=== PATIENT | female | born 1935 | race Caucasian/White ===

== ENCOUNTER 2016-07-23 21:37 | Inpatient (IN) | payer BC ==
[~2016-07-23] VITALS: Ht 170.2 cm; Wt 72.6 kg
[~2016-07-23 21:37] MED LIST: LEVO25TA58 PO; LISINOPRIL PO
[2016-07-23 21:45] VITALS: BP 142/82; PULSE 92; RESP 20; TEMP 98; O2SAT 100
--- NOTE | 2016-07-23 21:45 | NUR ---
Patient to ER bed 1 to gown for evaluation. Side rails up. Report given to JOSH MESA.
--- NOTE | 2016-07-23 21:50 | NUR ---
Pt BIB ambulance status post-mechanical fall. Pt stated that she tripped and fell at home, landed on her Left hip, extreme pain 9/10 upon movement of the left leg. Left left laterally rotated and bended, skin pale, pedal pulse present. No bruises noted. A&Ox4, denies N/V/D, denies chestpain or SOB. Will continue to monitor
--- NOTE | 2016-07-23 21:55 | NUR ---
MD Mcintosh at bedside examining pt
[2016-07-23] MEDS ORDERED: NACL 0.9% 1,000 ML IV ONE (21:57)
[2016-07-23] MEDS ORDERED: KETOROLAC TROMETHAMINE 30 MG VIAL IVP ONE (22:00)
[2016-07-23 22:26] LABS: BASOPHILS % (AUTO) 0.3 % (0.0-2.0); EOSINOPHILS # (AUTO) 0.1 K/uL (0.0-0.4); EOSINOPHILS % (AUTO) 0.4 % (0.0-4.0); HEMATOCRIT 32.7 % (36-48); HEMOGLOBIN 11.5 g/dL (12.0-16.0); LYMPHOCYTES # (AUTO) 1.1 K/uL (1.0-5.5); LYMPHOCYTES % (AUTO) 6.8 % (20.5-51.5); MEAN CORPUSCULAR HEMOGLOBIN 36 pg (27-31); MEAN CORPUSCULAR HGB CONC 35 % (32-36); MEAN CORPUSCULAR VOLUME 102 fL (79.0-98.0); MONOCYTES # (AUTO) 0.6 K/uL (0.0-1.0); MONOCYTES % (AUTO) 3.8 % (1.7-9.3); NEUTROPHILS # (AUTO) 14.1 K/uL (1.8-7.7); NEUTROPHILS % (AUTO) 88.7 % (40.0-70.0); PLATELET COUNT (AUTO) 221 K/uL (130-430); RED BLOOD CELL COUNT(AUTO) 3.22 MIL/uL (4.2-6.2); RED CELL DISTRIBUTION WIDTH 11.6 % (9.0-15.0); WHITE BLOOD COUNT (AUTO) 15.9 K/uL (4.8-10.8)
--- NOTE | 2016-07-23 22:30 | NUR ---
pt stated pain is controlled, VSS< no sign of distress
[2016-07-23 22:41] LABS: ALANINE AMINOTRANSFERASE 22 U/L (12-78); ANION GAP 10 (5-15); ASPARTATE AMINOTRANSFERASE 26 U/L (10-37); CHLORIDE 102 mmol/L (98-107); CREATININE 0.78 mg/dL (0.55-1.30); POTASSIUM 3.9 mmol/L (3.5-5.1); SODIUM SERUM 136 mmol/L (136-145); TOTAL BILIRUBIN 0.7 mg/dL (0.0-1.0); TOTAL PROTEIN, SERUM 7.6 g/dL (6.4-8.3); UREA NITROGEN, BLOOD 19 mg/dL (8-21)
[2016-07-23 22:46] LABS: PROTHROMBIN TIME 10.6 SECS (9.5-12.5)
[2016-07-23 22:55] LABS: GLUCOSE 124 mg/dL (70-99)
[2016-07-23] MEDS ORDERED: MORPHINE 4 MG/ML INJ. SYRINGE IVP ONE (23:00)
--- NOTE | 2016-07-23 23:15 | NUR ---
# 16 FR Combs catheter with use of sterile technique. Immediate return of 300 cc yellow urine noted. Bedside drainage bag placed below level of bladder. Urine sample collected and sent to lab. Pt tolerated procedure well
[2016-07-23 23:38] LABS: BILIRUBIN,URINE NEGATIVE (NEGATIVE); BLOOD, URINE 2+ (NEGATIVE); CLARITY/URINE CLEAR (CLEAR); COLOR,URINE YELLOW (YELLOW); GLUCOSE,URINE NEGATIVE (NEGATIVE); KETONES,URINE TRACE (NEGATIVE); LEUKOCYTE ESTERASE ,URINE NEGATIVE (NEGATIVE); NITRITE, URINE NEGATIVE (NEGATIVE); PH,URINE 5.5 (5.0-8.0); PROTEIN URINE NEGATIVE (NEGATIVE); UROBILINOGEN,URINE 0.2 (0.2-1.0)
[2016-07-23 23:54] LABS: BACTERIA,URINE RARE /HPF (None Seen); MUCUS,URINE None Seen /LPF (None Seen); WBC,URINE 0-3 /HPF (0-3)
[2016-07-24] VITALS (9 sets, daily range): BP systolic 100–120; BP diastolic 53–77; PULSE 69–97; RESP 16–18; TEMP 97–99.1; O2SAT 95–99
[2016-07-24] MEDS ORDERED: D5/0.45 NS 1,000 ML IV ONE (00:15)
[2016-07-24] MEDS ORDERED: ONDANSETRON HCL 4 MG/2 ML VIAL IVP PRN (00:15)
--- NOTE | 2016-07-24 00:20 | NUR ---
Patient will be admitted to care of . Admitted to Med-surg unit. Will go to room 130A. Belongings list completed. Summary report printed. Report given to Enrico Arvizu
--- NOTE | 2016-07-24 00:23 | NUR ---
ADMISSION NOTE Received patient from ER via nisha, received report from jania MESA. Patient admitted with diagnosis of fracture. Patient oriented to hospital routine, call light, toileting and safety-patient verbalized understanding.
--- NOTE | 2016-07-24 00:30 | NUR ---
NOTES; RECEIVED PT FROM ER VIA GURNEY TO ROOM 130A. PT IS IN BED, A/A/O X4. NO ACUTE DISTRESS NOTED. VITAL SIGNS STABLE. ORIENTED PT TO ROOM AND CALL LIGHT. PT VERBALIZED AND DEMONSTRATED UNDERSTANDING. RECEIVED PT WITH IV ON THE LEFT A/C, GAUGE 22 WITH ORDERED IVF. SKIN INTACT. MENDIOLA CATHETER DRAINING TO GRAVITY YELLOW URINE OUT PUT. PT STATED COMFORTABLE PAIN OF 4/10. PT DOES NOT WANT TO BE MEDICATED. PEDAL PULSES PALPABLE. PT IS ABLE TO WIGGLE AND FELX TOES. SENSATION PRESENT. PT IS A FALL RISK. FALL PRECAUTION IN PLACE. BED LOCKED AND IN LOW POSITION, SIDE RAILS UP X3. BED ALARM ON. YELLOW WRIST BAND ON PT WRIST. CALL LIGHT IN PT HAND. ADVISED PT TO USE CALL LIGHT TO CALL FOR ANY NEED TO ASSIST. ROOM CLOSE TO NURSES STATION. PT VERBALIZED UNDERSTANDING. BELONGINGS LIST DOCUMENTED AND SIGNED BY PT. WILL CONTINUE TO MONITOR.
--- NOTE | 2016-07-24 01:09 | NUR ---
CONSULTATION PAGED REASON FOR CONSULTATION: fx left leg WAS CONSULT CALLED? yes PERSON WHO WAS NOTIFIED: cyndy CONSULTING PHYSICIAN: Dr. Powell; Dr. Vasquez is curbing stonecutter for Dr. Powell DRUM SEALER SPECIALTY: Ortho DRUM SEALER PHONE NUMBER: [phone]
--- NOTE | 2016-07-24 02:30 | NUR ---
NOTES; PT IS IN BED, APPEARED TO BE SLEEPING. RESPIRATION EVEN AND UNLABORED. SAFETY MEASURES IN PROGRESS. WILL CONTINUE TO MONITOR.
--- NOTE | 2016-07-24 04:30 | NUR ---
IV RE-INSERTION: Complaining IV leaking. Restarted new iv on the left hand, gauge 22. Successful after one attempt. Resumed IVF Will observe for any signs of infiltration. Old iv removed with catheter tip intact. Dressing applied. No bleeding noted.
[2016-07-24] MEDS: MORPHINE 2 MG/ML INJ. SYRINGE IVP PRN ×2 (05:00→09:26)
--- NOTE | 2016-07-24 06:50 | NUR ---
NOTES; AWAKE, IN BED. NO ACUTE DISTRESS NOTED. PEDAL PULSES PALPABLE. VITAL SIGNS STABLE, AFEBRILE. IVF INFUSING WELL. DENIES ANY PAIN AT THIS TIME. SAFETY MEASURES IN PROGRESS.
--- NOTE | 2016-07-24 07:20 | NUR ---
initial notes; pt on bed resting. stable. i.v. access patent. daughter at bedside. call light within reach. report given at bedside.
[2016-07-24 07:36] LABS: ALANINE AMINOTRANSFERASE 21 U/L (12-78); ALBUMIN 3.5 g/dL (3.4-4.8); ANION GAP 8 (5-15); ASPARTATE AMINOTRANSFERASE 26 U/L (10-37); CALCIUM 9.1 mg/dL (8.4-11.0); CHLORIDE 102 mmol/L (98-107); CREATININE 0.73 mg/dL (0.55-1.30); GLUCOSE 127 mg/dL (70-99); POTASSIUM 4.6 mmol/L (3.5-5.1); SODIUM SERUM 135 mmol/L (136-145); TOTAL BILIRUBIN 1.2 mg/dL (0.0-1.0); TOTAL PROTEIN, SERUM 6.6 g/dL (6.4-8.3); UREA NITROGEN, BLOOD 20 mg/dL (8-21)
[2016-07-24 07:46] LABS: BASOPHILS % (AUTO) 0.3 % (0.0-2.0); EOSINOPHILS # (AUTO) 0.1 K/uL (0.0-0.4); EOSINOPHILS % (AUTO) 1.2 % (0.0-4.0); HEMOGLOBIN 9.6 g/dL (12.0-16.0); LYMPHOCYTES # (AUTO) 1.4 K/uL (1.0-5.5); LYMPHOCYTES % (AUTO) 15.9 % (20.5-51.5); MEAN CORPUSCULAR HEMOGLOBIN 37 pg (27-31); MEAN CORPUSCULAR HGB CONC 36 % (32-36); MEAN CORPUSCULAR VOLUME 105 fL (79.0-98.0); MONOCYTES # (AUTO) 0.8 K/uL (0.0-1.0); MONOCYTES % (AUTO) 9.2 % (1.7-9.3); NEUTROPHILS # (AUTO) 6.2 K/uL (1.8-7.7); NEUTROPHILS % (AUTO) 73.4 % (40.0-70.0); PLATELET COUNT (AUTO) 178 K/uL (130-430); RED BLOOD CELL COUNT(AUTO) 2.58 MIL/uL (4.2-6.2); RED CELL DISTRIBUTION WIDTH 11.6 % (9.0-15.0)
[2016-07-24 08:21] LABS: WHITE BLOOD COUNT (AUTO) 8.5 K/uL (4.8-10.8)
--- NOTE | 2016-07-24 08:30 | NUR ---
Ortho consult Spoke to Dr. caldera , informed regarding consult/xray result will come to see the patient.
--- NOTE | 2016-07-24 09:30 | NUR ---
pain meds: pt complained of pain 01/02. due pain meds given thru i.v.p.
[2016-07-24] MEDS ORDERED: LEVO88TA5 PO (11:22)
[2016-07-24] MEDS ORDERED: NAPR-688 PO (11:22)
[2016-07-24] MEDS ORDERED: NEU100 PO (11:22)
[2016-07-24] MEDS ORDERED: ASPI-859 PO (11:22)
[2016-07-24] MEDS ORDERED: RAMI2.5C34 PO (11:22)
[2016-07-24] MEDS ORDERED: LIP10 PO (11:22)
[2016-07-24] MEDS ORDERED: MOME13HF2 INH (11:29)
[2016-07-24] MEDS ORDERED: [UNRECOGNIZED DRUG - OTHER] (11:29)
[2016-07-24] MEDS ORDERED: FISH1CAP16 PO (11:37)
[2016-07-24] MEDS ORDERED: FERR-57 PO (11:37)
[2016-07-24] MEDS ORDERED: MULT-1164 PO (11:37)
[2016-07-24] MEDS ORDERED: CA/D1TAB7 PO (11:37)
[2016-07-24] MEDS ORDERED: FERR159T2 PO (11:37)
[2016-07-24] MEDS ORDERED: ALBU8.5H8 INH (11:41)
--- NOTE | 2016-07-24 12:00 | NUR ---
rounds: pt on bed resting. family at bedside. no distress noted.
[2016-07-24] MEDS ORDERED: CYAN250010 PO (12:30)
[2016-07-24] MEDS ORDERED: TURM1POW PO (12:30)
[2016-07-24] MEDS ORDERED: GLUC-236 PO (12:30)
[2016-07-24] MEDS ORDERED: BIOT10004 PO (12:30)
[2016-07-24] MEDS ORDERED: VITA1CAP PO (12:30)
[2016-07-24] MEDS ORDERED: ENOXAPARIN SODIUM 40 MG/0.4 ML SYRINGE SUBCUT ONE (13:00)
[2016-07-24] MEDS: HYDROcodone/ACETAMIN 5-325 MG TAB (NORCO/ VICODIN) PO PRN ×3 (13:42→21:50)
--- NOTE | 2016-07-24 13:54 | NUR ---
pain meds: administered pain meds P.O. per pt request.
[2016-07-24] MEDS: 0.45% NACL 1,000 ML IV SCH (14:02)
--- NOTE | 2016-07-24 14:09 | NUR ---
rounds: pt on bed with family at bedside. changed fluids per order. lovenox administered as ordered.
--- NOTE | 2016-07-24 15:00 | NUR ---
Cinthya rounds: pt talk to Dr. Vasquez.
--- NOTE | 2016-07-24 15:18 | NUR ---
rounds: pt on bed awake with family at bedside. no distress noted. comfortable and not in pain.
--- NOTE | 2016-07-24 17:15 | NUR ---
rounds: pt on bed resting and family at bedside.
--- NOTE | 2016-07-24 18:01 | NUR ---
Pain meds: pain medication given for femur fracture pain.
--- NOTE | 2016-07-24 18:29 | NUR ---
closing notes: pt on bed sleeping. stable. needs attended. daughter at bedside. call light within reach. bed safety in placed. report will be given to incoming nurse.
--- NOTE | 2016-07-24 19:15 | NUR ---
change of shift:pt.assessed.i have confirmed:lt.leg injury.call light w/in pt's reach.family @bedside.
--- NOTE | 2016-07-24 19:45 | NUR ---
pt.assessed.v/s assessed.pt.sates she is fine.iv fluids infuising.call light w/in pt's reach.
--- NOTE | 2016-07-24 21:00 | NUR ---
2100 p medications administered.pt.requested pain tablet:norco 2 b due @2200p.
[2016-07-24] MEDS: ATORVASTATIN 10 MG TABLET PO SCH (21:48)
[2016-07-24] MEDS: GABAPENTIN 100 MG CAPSULE PO SCH (21:49)
--- NOTE | 2016-07-24 22:00 | NUR ---
pt.assessed norco:1 tab administered..
--- NOTE | 2016-07-25 | NUR ---
pt.assessed.pt.presents quiescent affect;calm,asleep.call light w/in pt's reach. Addendum: 07/25/16 at 0425 by Lj Alexis RN no distress/discomfort manifested.
[2016-07-25 00:22] VITALS: BP 105/64; PULSE 74; RESP 20; TEMP 97.6; O2SAT 92
--- NOTE | 2016-07-25 02:00 | NUR ---
pt.assessed.pt.presents quiescent affect;calm,asleep.iv fluids infusing.call light w/in pt's reach. Addendum: 07/25/16 at 0426 by Lj Alexis RN no distress/discomfort manifested.
--- NOTE | 2016-07-25 04:00 | NUR ---
pt.assessed.pt.presents quiescent affect;calm,asleep.call light w/in pt's reach. Addendum: 07/25/16 at 0427 by Lj Alexis RN no distress/discomfort manifested.
[2016-07-25 04:23] VITALS: BP 132/68; PULSE 76; RESP 18; TEMP 97.8; O2SAT 96
--- NOTE | 2016-07-25 05:50 | NUR ---
pt.assessed.pt.is tentative surgery:07/25/16 per /verenice.pt.is awaiting informed consent per nano. pt.2 b ordered dietaty status:npo @[facility].
[2016-07-25] MEDS: 0.45% NACL 1,000 ML IV SCH (06:05)
[2016-07-25] MEDS: LEVOTHYROXINE SODIUM 0.088 MG TABLET PO SCH (06:09)
--- NOTE | 2016-07-25 08:00 | NUR ---
OPENING NOTE: RECEIVED REPORT FROM NIGHT NURSE. PATIENT IS RESTING COMFORTABLY IN BED. NO S/S OF DISTRESS OR SOB. PATIENT IS ALERT AND ORIENTED, ABLE TO EXPRESS NEEDS, AND ASK FOR ASSISTANCE. VITAL SIGNS WNL, ASSESSMENT COMPLETE. CALL LIGHT IN REACH, BED IN LOWEST POSITION, AND WILL CONTINUE TO MONITOR.
[2016-07-25 08:37] VITALS: BP 147/57; PULSE 72; RESP 18; TEMP 98.1; O2SAT 95
[2016-07-25 08:54] LABS: BASOPHILS % (AUTO) 0.4 % (0.0-2.0); EOSINOPHILS # (AUTO) 0.3 K/uL (0.0-0.4); EOSINOPHILS % (AUTO) 4.2 % (0.0-4.0); HEMOGLOBIN 8.5 g/dL (12.0-16.0); LYMPHOCYTES % (AUTO) 16.1 % (20.5-51.5); MEAN CORPUSCULAR HEMOGLOBIN 37 pg (27-31); MEAN CORPUSCULAR HGB CONC 36 % (32-36); MEAN CORPUSCULAR VOLUME 105 fL (79.0-98.0); MONOCYTES # (AUTO) 0.6 K/uL (0.0-1.0); MONOCYTES % (AUTO) 9.3 % (1.7-9.3); NEUTROPHILS # (AUTO) 4.3 K/uL (1.8-7.7); PLATELET COUNT (AUTO) 149 K/uL (130-430); RED CELL DISTRIBUTION WIDTH 11.8 % (9.0-15.0); WHITE BLOOD COUNT (AUTO) 6.2 K/uL (4.8-10.8)
[2016-07-25] MEDS: FERROUS SULFATE 325 MG TABLET.DR PO SCH (08:57)
[2016-07-25] MEDS: LISINOPRIL 10 MG TABLET (PRINIVIL) PO SCH (08:57)
[2016-07-25] MEDS: GABAPENTIN 100 MG CAPSULE PO SCH ×2 (08:57→21:00)
[2016-07-25] MEDS ORDERED: RAMIPRIL 2.5 MG CAPSULE (ALTACE) PO SCH (09:00)
[2016-07-25] MEDS ORDERED: IPRATROPIUM BROM 0.5 MG/2.5 ML VIAL.NEB (ATROVENT) INH PRN (09:15)
[2016-07-25] MEDS ORDERED: ALBUTEROL SULFATE 0.083% 2.5 MG/3 ML VIAL.NEB INH PRN (09:15)
--- NOTE | 2016-07-25 09:30 | NUR ---
Nutrition Update Reza Scale 14 noted. Pt admitted for fracture. Diet: NPO BMI: 25.1 kg/m2 RD to follow per nutrition care standards.
[2016-07-25 09:44] LABS: ANION GAP 5 (5-15); CALCIUM 8.9 mg/dL (8.4-11.0); CHLORIDE 105 mmol/L (98-107); CREATININE 0.68 mg/dL (0.55-1.30); GLUCOSE 107 mg/dL (70-99); POTASSIUM 4.2 mmol/L (3.5-5.1); SODIUM SERUM 138 mmol/L (136-145); UREA NITROGEN, BLOOD 13 mg/dL (8-21)
[2016-07-25 09:45] LABS: ALANINE AMINOTRANSFERASE 26 U/L (12-78); ALBUMIN 3.1 g/dL (3.4-4.8); ASPARTATE AMINOTRANSFERASE 45 U/L (10-37); TOTAL BILIRUBIN 1.1 mg/dL (0.0-1.0); TOTAL PROTEIN, SERUM 6.2 g/dL (6.4-8.3)
--- NOTE | 2016-07-25 10:10 | NUR ---
NOTE: PATIENT IS RESTING COMFORTABLY IN BED. NO S/S OF DISTRESS OR SOB. PATIENT IS ALERT AND ORIENTED, ABLE TO EXPRESS NEEDS, AND ASK FOR ASSISTANCE. FAMILY IS AT BEDSIDE. CALL LIGHT IN REACH, BED IN LOWEST POSITION, AND WILL CONTINUE TO MONITOR.
[2016-07-25] MEDS: IPRATROPIUM BROM 0.5 MG/2.5 ML VIAL.NEB (ATROVENT) INH SCH ×4 (11:35→23:00)
[2016-07-25] MEDS: ALBUTEROL SULFATE 0.083% 2.5 MG/3 ML VIAL.NEB INH SCH ×4 (11:35→23:00)
[2016-07-25 12:00] VITALS: BP 114/69; PULSE 74; RESP 18; TEMP 97.6; O2SAT 94
--- NOTE | 2016-07-25 12:00 | NUR ---
note: patient is resting comfortably in bed. no s/s of distress or sob. patient is alert and oriented. family at bedside. call light in reach, bed in lowest position, and will continue to monitor.
--- NOTE | 2016-07-25 14:00 | NUR ---
Note: Patient is resting comfortably in bed. no s/s of distress or sob. patient is alert and oriented, able to express needs, and ask for assistance. call light in reach, bed in lowest position, and will continue to monitor.
[2016-07-25] MEDS: MORPHINE 2 MG/ML INJ. SYRINGE IVP PRN (14:45)
[2016-07-25 16:00] VITALS: BP 123/64; PULSE 87; RESP 16; TEMP 98.5; O2SAT 94
--- NOTE | 2016-07-25 16:16 | NUR ---
NOTE: PATIENT IS RESTING COMFORTABLY IN BED. NO S/S OF DISTRESS OR SOB. PATIENT IS ALERT AND ORIENTED, ABLE TO EXPRESS NEEDS, AND ASK FOR ASSISTANCE. CALL LIGHT IN REACH, BED IN LOWEST POSITION, AND WILL CONTINUE TO MONITOR.
[2016-07-25 18:10] VITALS: BP 114/69; PULSE 74
--- NOTE | 2016-07-25 18:25 | NUR ---
closing note: patient is in OR. will give report to night nurse.
[2016-07-25] MEDS ORDERED: POLYMYXIN 500,000/BACIT.10,000 UNITS in NS IRR 1 L IR ONE (18:33)
[2016-07-25] MEDS ORDERED: ROCURONIUM BROMIDE 10 MG/ML (ZEMURON) IV ONE (18:40)
[2016-07-25] MEDS ORDERED: fentaNYL CITRATE 250 MCG/5 ML AMP IV ONE (18:40)
[2016-07-25] MEDS ORDERED: TRANEXAMIC ACID 1,000 MG/10 ML VIAL IV ONE (18:40)
[2016-07-25] MEDS ORDERED: MIDAZOLAM HCL 5 MG/5 ML VIAL IVP ONE (18:40)
[2016-07-25] MEDS ORDERED: SEVOFLURANE 15 MIN GAS INH ONE (18:40)
[2016-07-25] MEDS ORDERED: NS 1000 ML BAG IV ONE (18:40)
[2016-07-25] MEDS ORDERED: LR 1,000 ML IV.SOLN IV ONE (18:40)
[2016-07-25] MEDS ORDERED: PROPOFOL 200MG/ 20ML VIAL (DIPRIVAN) IV ONE (18:40)
[2016-07-25] MEDS ORDERED: ONDANSETRON HCL 4 MG/2 ML VIAL IVP ONE (18:40)
[2016-07-25] MEDS ORDERED: BUPIVACAINE LIPOSOME/PF 266 MG/20 ML VIAL INFIL ONE (18:40)
[2016-07-25] MEDS ORDERED: CEFAZOLIN 2 GM IVPB PREMIX 50 ML IV ONE (18:40)
[2016-07-25] MEDS: ATORVASTATIN 10 MG TABLET PO SCH (21:00)
[2016-07-25] MEDS ORDERED: LR 1,000 ML IV SCH (23:04)
[2016-07-25] MEDS ORDERED: ONDANSETRON 4 MG ODT TAB PO PRN (23:15)
[2016-07-25] MEDS ORDERED: MORPHINE 2 MG/ML INJ. SYRINGE IVP PRN ×3 (23:15)
[2016-07-25] MEDS ORDERED: LR 500 ML IV ONE (23:15)
[2016-07-25] MEDS ORDERED: ACETAMINOPHEN 325 MG TABLET PO PRN (23:15)
[2016-07-26] VITALS (14 sets, daily range): BP systolic 96–124; BP diastolic 49–83; PULSE 69–101; RESP 16–20; TEMP 96.2–99.2; O2SAT 95–100
--- NOTE | 2016-07-26 00:05 | NUR ---
Received patient from [facility] Received patient from [facility], s/p ORIF, AAOx3 denies of any pain, no acute distress noted. Checked IV site intact and patent, IV fluid infusing well. Left hip dressing clean, dry and intact with cold pack in place, ConstaVac intact and patent with at least 20ml, light red drainage inside the canister noted. Patient able to wiggle all toes to affected lower ext. Pillow under bilateral heels in place. SCD machine in place. Combs cath to gravity 10ml yellow urine noted inside the bag. Vital sign wnl. Instructed patient to call nurse when getting out of bed, call light within reach. Family at the bedside.
--- NOTE | 2016-07-26 02:00 | NUR ---
Rounds Patient resting quietly, no s/s of any pain, no acute distress noted. IV fluid infusing well. Vital sign stable. ConstaVac intact, output small amount noted. Will continue to monitor. call light within reach. Family at the bedside.
[2016-07-26] MEDS: ALBUTEROL SULFATE 0.083% 2.5 MG/3 ML VIAL.NEB INH SCH ×6 (03:00→23:00)
[2016-07-26] MEDS: IPRATROPIUM BROM 0.5 MG/2.5 ML VIAL.NEB (ATROVENT) INH SCH ×6 (03:00→23:00)
--- NOTE | 2016-07-26 04:00 | NUR ---
Rounds Patient awake, encouraged to use I.S tolerated well. patient denies of any pain, no acute distress noted. call light within reach.
[2016-07-26] MEDS: HYDROcodone/ACETAMIN 5-325 MG TAB (NORCO/ VICODIN) PO PRN ×2 (06:15→20:09)
--- NOTE | 2016-07-26 06:15 | NUR ---
C/o pain Patient c/o back pain due to lying in bed for long time per patient, 6/10pain scale.
[2016-07-26] MEDS ORDERED: CEFAZOLIN 1 GM IVPB PREMIX 50 ML IV ONE (06:30)
[2016-07-26] MEDS: LEVOTHYROXINE SODIUM 0.088 MG TABLET PO SCH (06:32)
[2016-07-26] MEDS: CEFAZOLIN 1 GM IVPB PREMIX 50 ML IV SCH ×2 (06:36→14:34)
--- NOTE | 2016-07-26 06:45 | NUR ---
DUE IV ANTIBIOTIC Due IV antibiotic administered as ordered. Educated pt. regarding medication. Pt. denies any questions or concerns at this time. Safety measures in place. Encouraged pt. to use call light for assistance.
--- NOTE | 2016-07-26 07:00 | NUR ---
Closing notes Patient resting at this time. pain medication given earlier with effective result noted. patient able to wiggle all toes to affected lower ext.new ice pack applied to incisional site. IV Ancef infusing well. Endorsed to on coming nurse to monitor urine output.
--- NOTE | 2016-07-26 07:30 | NUR ---
AM ROUNDS PATIENT RESTING IN BED, AWAKE, ALERT AND ORIENTED X4, DENIES PAIN, ASSESSMENT COMPLETE, LEFT HIP INCISION SITE NOTED, DRESSING IS CLEAN, DRY AND INTACT AT THIS TIME, ICE PACKS IN PLACE, CONSTAVAC IN PLACE, WILL MONITOR DRAINAGE, EDUCATED THE PATIENT CANINE SERVICE INSTRUCTOR TRAINER LIGHT SYSTEM AND TO CALL FOR ANY ASSISTANCE, PATIENT VERBALIZED UNDERSTANDING AT THIS TIME, NO OTHER NEEDS AT THIS TIME, BED IN LOWEST POSITION, THREE SIDE RAILS UP, BED ALARM ON, CALL LIGHT NEXT TO THE PATIENT'S HAND, FALL PRECAUTIONS IN PLACE.
--- NOTE | 2016-07-26 07:40 | NUR ---
NEUROVASCULAR CHECK PATIENT IS ABLE TO MOVE TOES AND ANKLES BILATERALLY, PEDAL PULSES FELT STRONG AND NORMAL BILATERALLY, SENSATION FELT BILATERALLY, PATIENT DENIES ANY NUMBNESS OR TINGLING.
[2016-07-26] MEDS: ENOXAPARIN SODIUM 40 MG/0.4 ML SYRINGE SUBCUT SCH (09:00)
[2016-07-26] MEDS: LISINOPRIL 10 MG TABLET (PRINIVIL) PO SCH (09:00)
[2016-07-26 09:13] LABS: BASOPHILS % (AUTO) 0.5 % (0.0-2.0); EOSINOPHILS % (AUTO) 0.4 % (0.0-4.0); LYMPHOCYTES # (AUTO) 1.3 K/uL (1.0-5.5); MEAN CORPUSCULAR HEMOGLOBIN 36 pg (27-31); MEAN CORPUSCULAR HGB CONC 35 % (32-36); MEAN CORPUSCULAR VOLUME 101 fL (79.0-98.0); MONOCYTES # (AUTO) 0.6 K/uL (0.0-1.0); NEUTROPHILS # (AUTO) 6.7 K/uL (1.8-7.7); NEUTROPHILS % (AUTO) 77.1 % (40.0-70.0); PLATELET COUNT (AUTO) 113 K/uL (130-430); RED BLOOD CELL COUNT(AUTO) 2.13 MIL/uL (4.2-6.2); RED CELL DISTRIBUTION WIDTH 13.4 % (9.0-15.0); WHITE BLOOD COUNT (AUTO) 8.6 K/uL (4.8-10.8)
[2016-07-26 09:16] LABS: HEMATOCRIT 21.6 % (36-48)
[2016-07-26 09:17] LABS: HEMOGLOBIN 7.6 g/dL (12.0-16.0)
[2016-07-26 09:33] LABS: ANION GAP 4 (5-15); CALCIUM 7.8 mg/dL (8.4-11.0); CHLORIDE 104 mmol/L (98-107); CREATININE 0.83 mg/dL (0.55-1.30); GLUCOSE 143 mg/dL (70-99); POTASSIUM 4.4 mmol/L (3.5-5.1); SODIUM SERUM 134 mmol/L (136-145); UREA NITROGEN, BLOOD 15 mg/dL (8-21)
--- NOTE | 2016-07-26 09:33 | NUR ---
DR PERSON ROUNDS NOTIFIED OF LOW HEMOGLOBIN AND HEMATOCRIT, ORDER FOR 2 UNITS PACKED RED BLOOD CELLS RECEIVED, WILL FOLLOW UP.
--- NOTE | 2016-07-26 10:14 | NUR ---
BT INITIATION: Consent signed per LUCRETIA CHOUDHARY agreeing to administration of blood. Blood has been type and crossmatched. Blood sent from blood bank. Information on unit of blood checked against patient wristband at bedside by two nurses. All information matches. Patient or responsible democrat informed of potential complications associated with blood transfusion. Informed of possible transfusion reaction symptoms. Aware of need to notify nurse at once of itching, shortness of breath, flushing, feeling of impending doom, or other symptoms not previously present. Vital signs taken within 5 minutes prior to initiation of transfusion. RN will remain with patient for first 15 minutes of transfusion at which time vital signs will be re-assessed.
--- NOTE | 2016-07-26 10:31 | NUR ---
15 MINUTES BLOOD TRANSFUSION PATIENT TOLERATING WELL, NO SIGNS OF TRANSFUSION REACTION, WILL CONTINUE TO MONITOR.
[2016-07-26] MEDS: DOCUSATE SODIUM 100 MG CAPSULE PO SCH ×2 (10:33→20:07)
[2016-07-26] MEDS: FERROUS SULFATE 325 MG TABLET.DR PO SCH (10:33)
[2016-07-26] MEDS: GABAPENTIN 100 MG CAPSULE PO SCH ×2 (10:33→20:08)
[2016-07-26] MEDS: MORPHINE 2 MG/ML INJ. SYRINGE IVP PRN ×2 (10:34→14:40)
--- NOTE | 2016-07-26 13:30 | NUR ---
RN ROUNDS END OF BLOOD TRANSFUSION FOR UNIT ONE AT THIS TIME, PATIENT TOLERATED WELL, PATIENT DENIES PAIN AT THIS TIME, NO OTHER NEEDS AT THIS TIME, BED IN LOWEST POSITION, THREE SIDE RAILS UP, BED ALARM ON, CALL LIGHT NEXT TO THE PATIENT'S HAND, FALL PRECAUTIONS IN PLACE.
--- NOTE | 2016-07-26 14:10 | NUR ---
BT INITIATION: Consent signed per LUCRETIA CHOUDHARY agreeing to administration of blood. Blood has been type and crossmatched. Blood sent from blood bank. Information on unit of blood checked against patient wristband at bedside by two nurses. All information matches. Patient or responsible constitution party informed of potential complications associated with blood transfusion. Informed of possible transfusion reaction symptoms. Aware of need to notify nurse at once of itching, shortness of breath, flushing, feeling of impending doom, or other symptoms not previously present. Vital signs taken within 5 minutes prior to initiation of transfusion. RN will remain with patient for first 15 minutes of transfusion at which time vital signs will be re-assessed.
--- NOTE | 2016-07-26 14:40 | NUR ---
RN ROUNDS PATIENT RESTING IN BED, STATES SHE WOULD LIKE PAIN MEDICATION PRIOR TO PHYSICAL THERAPY, EDUCATED THE PATIENT ON PAIN MEDICATION AND POTENTIAL SIDE EFFECTS, PATIENT VERBALIZED UNDERSTANDING AND TOLERATED WELL, IV ANTIBIOTIC HUNG ON SECOND PERIPHERAL SITE AT THIS TIME, INFUSING WELL, NO OTHER NEEDS AT THIS TIME, BED IN LOWEST POSITION, THREE SIDE RAILS UP, FALL PRECAUTIONS IN PLACE, BED ALARM ON, CALL LIGHT NEXT TO THE PATIENT'S HAND.
--- NOTE | 2016-07-26 16:30 | NUR ---
RN ROUNDS PATIENT RESTING IN BED, EYES CLOSED, BREATHING IS EVEN AND UNLABORED, NO SIGNS OF DISTRESS AT THIS TIME, BED IN LOWEST POSITION, THREE SIDE RAILS UP, BED ALARM ON, FALL PRECAUTIONS IN PLACE, CALL LIGHT NEXT TO THE PATIENT'S HAND.
--- NOTE | 2016-07-26 17:27 | NUR ---
RN ROUNDS PATIENT RESTING IN BED, AWAKE, BLOOD TRANSFUSION COMPLETE AT THIS TIME, NO SIGNS OF ADVERSE REACTION, VITAL SIGNS STABLE AT THIS TIME, DENIES PAIN, NO OTHER NEEDS AT THIS TIME, BED IN LOWEST POSITION, THREE SIDE RAILS UP, BED ALARM ON, FALL PRECAUTIONS IN PLACE, CALL LIGHT IN THE PATIENT'S HAND.
--- NOTE | 2016-07-26 17:44 | NUR ---
INCENTIVE SPIROMETER EDUCATED THE PATIENT ON HOW TO, WHY AND HOW OFTEN TO USE THE INCENTIVE SPIROMETER, PATIENT VERBALIZED UNDERSTANDING AND GAVE RETURN DEMONSTRATION OF 1500ML AT THIS TIME.
--- NOTE | 2016-07-26 18:20 | NUR ---
PHYSICAL THERAPY CO-SIGN The Physical Therapy Progress Notes documented by Food Production Associate have been reviewed. Reviewed/Co-Signed by: Edelmira Barrera, PT Documentation Done by: Kishan Sotelo PTA I concur with the documentation of this HUMAN RESOURCES ADMINISTRATOR. Plan: continue PT as per plan of care. Addendum: 07/27/16 at 0850 by Edelmira Barrera PT Amended: Links added.
--- NOTE | 2016-07-26 18:30 | NUR ---
CLOSING NOTES PATIENT RESTING IN BED, EYES CLOSED, BREATHING IS EVEN AND UNLABORED NO SIGNS OF DISTRESS AT THIS TIME, ALL NEEDS MET, BED IN LOWEST POSITION, THREE SIDE RAILS UP, BED ALARM ON, CALL LIGHT NEXT TO THE PATIENT'S HAND, FALL PRECAUTIONS IN PLACE, WILL ENDORSE REPORT TO NOC SHIFT NURSE.
--- NOTE | 2016-07-26 20:00 | NUR ---
Initial PM Assessment Pt was received lying in bed fully AAO x4. Speech is clear and pt is able to make her needs known. No acute distress noted. Family members are visiting at the bedside. IV site in RH is without any signs of infiltration. Lt hip dressing is dry and intact. ConstaVac to lt hip noted with small amount of bloody drainage. Combs Cath to gravity drainage is patent with mook colored urine. Fall precautions are in place. Pt was instructed to call for assistance as needed and pt verbalized understanding. Bed is in the lowest and locked positions. Call light is with pt. Will continue to monitor pt.
[2016-07-26] MEDS: ATORVASTATIN 10 MG TABLET PO SCH (20:08)
--- NOTE | 2016-07-26 20:09 | NUR ---
Pain Medication [place] 5/325mg 2 tablets were given po for c/o lt hip incisional pain with relief.
[2016-07-26] MEDS: 0.45% NACL 1,000 ML IV SCH (20:45)
[2016-07-26] MEDS: TEMAZEPAM 15 MG CAPSULE PO PRN (22:42)
--- NOTE | 2016-07-26 22:42 | NUR ---
Insomnia Restoril 15mg was given po for c/o insomnia.
[2016-07-27] VITALS (7 sets, daily range): BP systolic 84–166; BP diastolic 41–74; PULSE 61–102; RESP 18–20; TEMP 96.7–98.4; O2SAT 91–100
--- NOTE | 2016-07-27 | NUR ---
Rounds Pt is sleeping without any resp distress noted. IVF is infusing well in RH and call light is with pt.
--- NOTE | 2016-07-27 02:00 | NUR ---
Rounds Pt is sleeping comfortably in bed and no resp distress noted. IVF is infusing well in RH and call light is with pt.
[2016-07-27] MEDS: ALBUTEROL SULFATE 0.083% 2.5 MG/3 ML VIAL.NEB INH SCH ×6 (03:00→23:00)
[2016-07-27] MEDS: IPRATROPIUM BROM 0.5 MG/2.5 ML VIAL.NEB (ATROVENT) INH SCH ×6 (03:00→23:00)
--- NOTE | 2016-07-27 04:00 | NUR ---
Rounds Pt is sleeping comfortably in bed. Call light is with pt.
--- NOTE | 2016-07-27 05:26 | NUR ---
Combs Cath Removal Refusal Pt stated her daughter does not want her Combs Catheter removed yet because it will be difficult for her to get out of bed or use bedpan to void. Pt was educated on the importance of removing Combs Catheter as soon as possible to prevent infection, but pt insisted on not removing the catheter, but to wait for her daughter to get here. Pt stated her daughter will most likely get here around 7AM. Addendum: 07/27/16 at 0742 by Cathleen Bullock RN Charge nurse Danie was informed about pt's refusal of Combs Cath removal. Charge nurse stated she will follow up with Dr. Baumann. Charge nurse also stated to endorse to day shift nurse.
[2016-07-27] MEDS: LEVOTHYROXINE SODIUM 0.088 MG TABLET PO SCH (06:30)
--- NOTE | 2016-07-27 06:41 | NUR ---
Closing Note Pt is awake and resting comfortably in bed. All pt's needs were attended to. No fall or injury noted this shift. Will endorse to day shift nurse.
--- NOTE | 2016-07-27 07:30 | NUR ---
Report Bedside report given to day shift nurse. Pt's daughter is at the bedside and still refusing Combs Cath removal. Day shift nurse to follow up.
--- NOTE | 2016-07-27 08:25 | NUR ---
ROUNDS: SEEN AND EXAMINED BY DR. PERSON WITH NEW ORDERS.
--- NOTE | 2016-07-27 08:37 | NUR ---
ROUNDS: SEEN AND EXAMINED BY DR. PERSON AND SPOKE TO DAUGHTER AND PATIENT AT BEDSIDE . DR. PERSON SAID TO REMOVE F/C AND PLACE PATIENT ON ROOM AND PLACED ON ROOM AIR WILL CHECK IN 15 MINUTES. AND F/C DISCONTINUED AND REMOVED WITHOUT DIFFICULTY AND INSTRUCTED TO CALL IF NEEDS TO GO TO TOILET.
[2016-07-27] MEDS: DOCUSATE SODIUM 100 MG CAPSULE PO SCH ×2 (08:46→22:14)
[2016-07-27] MEDS: FERROUS SULFATE 325 MG TABLET.DR PO SCH (08:47)
[2016-07-27] MEDS: GABAPENTIN 100 MG CAPSULE PO SCH ×2 (08:47→22:13)
[2016-07-27] MEDS: LISINOPRIL 10 MG TABLET (PRINIVIL) PO SCH (08:48)
--- NOTE | 2016-07-27 08:52 | NUR ---
HCP/PA: Called HAMLET Montejo made her aware of discharge to SNF if ok with Surgeon.
[2016-07-27 09:13] LABS: BASOPHILS % (AUTO) 0.5 % (0.0-2.0); EOSINOPHILS % (AUTO) 0.4 % (0.0-4.0); HEMOGLOBIN 8.9 g/dL (12.0-16.0); LYMPHOCYTES # (AUTO) 0.7 K/uL (1.0-5.5); LYMPHOCYTES % (AUTO) 7.3 % (20.5-51.5); MEAN CORPUSCULAR HEMOGLOBIN 34 pg (27-31); MEAN CORPUSCULAR HGB CONC 34 % (32-36); MEAN CORPUSCULAR VOLUME 100 fL (79.0-98.0); MONOCYTES # (AUTO) 0.7 K/uL (0.0-1.0); MONOCYTES % (AUTO) 6.9 % (1.7-9.3); NEUTROPHILS % (AUTO) 84.9 % (40.0-70.0); PLATELET COUNT (AUTO) 115 K/uL (130-430); RED BLOOD CELL COUNT(AUTO) 2.59 MIL/uL (4.2-6.2); RED CELL DISTRIBUTION WIDTH 13.2 % (9.0-15.0); WHITE BLOOD COUNT (AUTO) 9.4 K/uL (4.8-10.8)
[2016-07-27] MEDS: ENOXAPARIN SODIUM 40 MG/0.4 ML SYRINGE SUBCUT SCH (09:48)
--- NOTE | 2016-07-27 09:49 | NUR ---
PAIN: C/O OF PAIN ON THE LEFT HIP. NORCO 5/325 MG. PO 2 TABS. GIVEN. WILL CONTINUE TO ASSESS.DAUGHTER AT THE BEDSIDE. AND ALSO P.T. NOTIFIED THAT PATIENT JUST RECEIVED PAIN MEDS.
[2016-07-27] MEDS: HYDROcodone/ACETAMIN 5-325 MG TAB (NORCO/ VICODIN) PO PRN ×2 (09:50→14:54)
--- NOTE | 2016-07-27 10:30 | NUR ---
BP: PER WAISTBAND SETTER WITH PT BP WAS ON 70"S AND ADVISED NOT TO DO PT AND JUST WAIT FOR FEW MINUTES and recheck bp.
--- NOTE | 2016-07-27 12:00 | NUR ---
BP IS LOW 84/41 MAURICE FAJARDO WAS NOTIFIED AND AWARE.
--- NOTE | 2016-07-27 12:00 | NUR ---
FAMILY: DAUGHTER HAD CONCERN REGARDING HER MOM, NO BOWEL MOVEMENT FOR 5 DAYS, BP EARLIER 70"S, HGB, AND WANTS TO SPOKE TO SURGEON. DR. MENDOZA WAS PAGED AND CALLED BACK AND TOLD HIM WHAT THE DAUGHTER CONCERN AND WHEN HE IS COMING AND DR. MENDOZA HE IS COMING IN BETWEEN 1-2 PM . RELAYED TO FAMILY.
[2016-07-27] MEDS ORDERED: MAGNESIUM CITRATE 300 ML ORAL SOLUTION PO ONE (13:30)
--- NOTE | 2016-07-27 15:23 | NUR ---
ACTIVITY: BLADDER SCAN DONE AND OBTAIN 171 CC. P.T. IN AND PUT PATIENT TO BEDSIDE COMMODE AND URINATED DAT URINE AND SMALL AMOUNT OF FORMED BM. KEPT CLEANED AND DRY. HELP BACK BY PT TO BED AND CALL LIGHT WITHIN REACH. DR. MENDOZA STILL TALKING TO THE DAUGHTER REGARDING THE PLAN.
--- NOTE | 2016-07-27 16:00 | NUR ---
ROUNDS: SEEN AND EXAMINED BY DR. MENDOZA AND REMOVED THE CONSTAVAC , AND CHANGED THE DRESSING ON THE LEFT HIP. ICE PACK APPLIED ON THE LEFT HIP.
--- NOTE | 2016-07-27 16:10 | NUR ---
PHYSICAL THERAPY CO-SIGN The Physical Therapy Progress Notes documented by Production Control Supervisor have been reviewed. Reviewed/Co-Signed by: Edelmira Barrera, PT Documentation Done by: Kishan Sotelo PTA I concur with the AM and PM documentation of this ASBESTOS SIDING INSTALLER. Plan: continue PT as per plan of care. Addendum: 07/28/16 at 0818 by Edelmira Barrera PT Amended: Links added.
--- NOTE | 2016-07-27 16:35 | NUR ---
ROUNDS: DR. MENDOZA HAD ORDERS TO HOLD DC TO [facility] DUE TO LOW BP AND CONSTIPATION.
--- NOTE | 2016-07-27 18:00 | NUR ---
NOTIFICATION: TRIED TO CALL [facility] HCP RUTHIE WAS CALLED, BUT UNABLE TO GET IN TOUCH AND HE IS GONE FOR THE DAY ,MESSAGE LEFT TO NURSE AGUILAR IN [facility] INFORMING THAT PATIENT DC WAS HOLD DUE TO LOW BP AND CONSTIPATION. OUR CHARGE NURSE HERE TED AWARE.
--- NOTE | 2016-07-27 18:44 | NUR ---
CLOSING: RESTING ON BED,AWAKE,ALERT AND ORIENTED. LEFT HIP DRESSING INTACT AND INPLACED. THE UPPER PORTION OF THE DRESSING WAS APPLIED . BED KWAN OFFERED AND PLACED. INSTRUCTED TO CALL WHEN DONE . AND VERBALIZED UNDERSTANDING. SALINE LOCK ON THE LEFT HAND INTACT AND INPLACED. CALL LIGHT WITHIN REACH. FAMILY AT THE BEDSIDE.
--- NOTE | 2016-07-27 20:00 | NUR ---
Initial PM Assessment Pt was received lying in bed fully AAO x4. Speech is clear and pt is able to make her needs known. No acute distress noted. Family members are visiting at the bedside. IV site in RH is without any signs of infiltration. Lt hip dressing is dry and intact. Fall precautions are in place. Pt was instructed to call for assistance as needed and pt verbalized understanding. Bed is in the lowest and locked positions. Call light is with pt. Will continue to monitor pt.
[2016-07-27] MEDS: TEMAZEPAM 15 MG CAPSULE PO PRN (22:14)
[2016-07-27] MEDS: ATORVASTATIN 10 MG TABLET PO SCH (22:14)
--- NOTE | 2016-07-27 22:14 | NUR ---
Insomnia Restoril 15mg was given po for c/o insomnia.
--- NOTE | 2016-07-28 | NUR ---
Rounds Pt is sleeping without any resp distress noted. Call light is with pt.
[2016-07-28 00:52] VITALS: BP 92/48; PULSE 93; RESP 18; TEMP 97.9; O2SAT 96
[2016-07-28] MEDS: IPRATROPIUM BROM 0.5 MG/2.5 ML VIAL.NEB (ATROVENT) INH SCH ×3 (03:00→11:24)
[2016-07-28] MEDS: ALBUTEROL SULFATE 0.083% 2.5 MG/3 ML VIAL.NEB INH SCH ×3 (03:00→11:25)
--- NOTE | 2016-07-28 03:00 | NUR ---
Rounds Pt is sleeping comfortably in bed. Call light is with pt.
[2016-07-28 03:45] VITALS: BP 98/52; PULSE 94; RESP 18; TEMP 98.3; O2SAT 96
[2016-07-28] MEDS: LEVOTHYROXINE SODIUM 0.088 MG TABLET PO SCH (06:14)
[2016-07-28 08:00] VITALS: BP 111/59; PULSE 95; RESP 20; TEMP 98.8; O2SAT 92
--- NOTE | 2016-07-28 08:00 | NUR ---
OPENING NOTE RECEIVED REPORT FROM NIGHT NURSE, PATIENT IS RESTING COMFORTABLY IN BED WITH NO COMPLAINTS OF PAIN, NO NOTED DISTRESS, DISCOMFORT OR SOB. PATIENT'S DRESSING IS CLEAN, DRY AND INTACT. PATIENT IS ALERT AND ORIENTED AND ABLE TO COMMUNICATE NEEDS TO STAFF. PATIENT AMBULATES WITH PT AND NEEDS PAIN MEDICATION BEFORE AMBULATING. BED IS IN LOWEST POSITION AND CALL LIGHT IS WITHIN REACH. WILL CONTINUE TO MONITOR.
[2016-07-28 08:34] LABS: HEMATOCRIT 25.3 % (36-48); HEMOGLOBIN 8.7 g/dL (12.0-16.0)
[2016-07-28] MEDS: FERROUS SULFATE 325 MG TABLET.DR PO SCH (08:37)
[2016-07-28] MEDS: GABAPENTIN 100 MG CAPSULE PO SCH (08:37)
[2016-07-28] MEDS: DOCUSATE SODIUM 100 MG CAPSULE PO SCH (08:37)
[2016-07-28] MEDS: HYDROcodone/ACETAMIN 5-325 MG TAB (NORCO/ VICODIN) PO PRN ×2 (08:38→13:23)
[2016-07-28] MEDS: LISINOPRIL 10 MG TABLET (PRINIVIL) PO SCH (08:38)
[2016-07-28] MEDS: ENOXAPARIN SODIUM 40 MG/0.4 ML SYRINGE SUBCUT SCH (08:38)
--- NOTE | 2016-07-28 10:00 | NUR ---
NOTE PATIENT IS RESTING IN BED COMFORTABLY WITH NO COMPLAINTS OF PAIN, NO NOTED DISTRESS, DISTRESS, SOB. PATIENT'S BED IS IN LOWEST POSITION AND CALL LIGHT IS WITHIN REACH. WILL CONTINUE TO MONITOR.
--- NOTE | 2016-07-28 10:59 | NUR ---
HCP/PA: Called HAMLET Manriquez made her aware of discharge to SNF.
[2016-07-28 12:00] VITALS: BP 94/54; PULSE 86; RESP 16; TEMP 97.9; O2SAT 97
--- NOTE | 2016-07-28 12:15 | NUR ---
NOTE PATIENT IS RESTING IN BED COMFORTABLY WITH NO COMPLAINTS OF PAIN, NO NOTED DISTRESS, DISCOMFORT OR SOB. DR PERSON WAS IN TO SEE THE PATIENT AND NEW ORDER TO DISCHARGE PATIENT TO SNF. PATIENT IS AWARE AND PICK IS ARRANGED FOR 1530. WILL WORK ON DISCHARGE PAPERWORK. CALL LIGHT IS WITHIN REACH AND WILL CONTINUE TO MONITOR
[2016-07-28 14:31] VITALS: BP 94/54; PULSE 86; RESP 16; TEMP 97.9; O2SAT 97
--- NOTE | 2016-07-28 14:45 | NUR ---
NOTE DISCHARGE INSTRUCTIONS WERE GIVEN TO THE PATIENT AND DAUGHTER, VERBALIZED UNDERSTANDING. REPORT WAS GIVEN TO KURT CROCKETT. PATIENT'S DAUGHTER STATED THAT THERE WAS A WOUND ON THE LEFT LEG OF THE PATIENT AND I WENT IN TO ASSESS AND IT LOOKED LIKE A SKIN TEAR FROM TAPE BEING PULLED OFF, PICTURES WERE TAKEN AND PUT IN THE CHART. PATIENT ASKED FOR MEDICATION LIST AND SHE SIGNED A PAPER TO LET US GIVE HER A COPY OF HER MEDICATIONS. PATIENT WAS CHANGED AND WAITING FOR EMT TO TRAINS SERVICE CONDUCTOR PATIENT. WILL CONTINUE TO MONITOR.
--- NOTE | 2016-07-28 15:33 | NUR ---
PHYSICAL THERAPY CO-SIGN The Physical Therapy Progress Notes documented by Process Equipment Operator have been reviewed. Reviewed/Co-Signed by: Edelmira Barrera,PT Documentation Done by: Anisa Mckeon PTA I concur with the AM and PM documentation of this FIREBRICK AND REFRACTORY TILE REPAIRER. Plan: continue PT as per plan of care if she remains here.
--- NOTE | 2016-07-28 15:43 | NUR ---
DISCHARGE EMT CAME TO UNION CARPENTER THE PATIENT AND SHE LEFT IN STABLE CONDITION WITH NO COMPLAINTS OF PAIN, NO NOTED DISTRESS, DISCOMFORT OR SOB. DAUGHTER WAS AT BEDSIDE. ALL BELONGINGS WERE TAKEN WITH DAUGHTER AND VITAL SIGNS WERE WITHIN NORMAL RANGE.
== END 2016-07-28 15:43 | DRG 481 ==
LOC: SED 21:37 → SMU 07-24 00:09
PROC: 30233N1 Transfusion of Nonautologous Red Blood Cells into Peripheral Vein, Percutaneous Approach (ICD-10-PCS; 2016-07-25)
PROC: 0QS704Z Reposition Left Upper Femur with Internal Fixation Device, Open Approach (ICD-10-PCS; principal; 2016-07-25 16:15)
DX: M97.02XA Periprosthetic fracture around internal prosthetic left hip joint, initial encounter (principal); D62 Acute posthemorrhagic anemia; Z96.642 Presence of left artificial hip joint; M81.0 Age-related osteoporosis without current pathological fracture; I10 Essential (primary) hypertension; E03.9 Hypothyroidism, unspecified; G62.9 Polyneuropathy, unspecified; M79.605 Pain in left leg; Z87.891 Personal history of nicotine dependence; Z82.49 Family history of ischemic heart disease and other diseases of the circulatory system
CPT/HCPCS: 36415; 71010; 73510-TC; 73552; 80048; 80053; 81000-TC; 83735-TC; 85018-TC; 85025; 85610-TC; 86886; 86900; 86901; 86920; 87081; 93005; 94010; 94640; 94760; 96374; 96375; 97110-GP; 97116-GP; 97530-GP; 99285; C1713; C1776; C9290; J0690; J1650; J1885; J2250; J2270; J2405; J2704; J3010; J3490; J7030; J7040; J7120; P9021

== ENCOUNTER 2016-08-01 18:23 | Inpatient (IN) | payer BC ==
[~2016-08-01] VITALS: Ht 170.2 cm; Wt 74.4 kg
[~2016-08-01 18:23] MED LIST changes: +ALBU8.5H8 INH; +ASPI-859 PO; +BIOT10004 PO; +CA/D1TAB7 PO; +CYAN250010 PO; +FERR-57 PO; +FERR159T2 PO; +FISH1CAP16 PO; +GLUC-236 PO; +LEVO88TA5 PO; +LIP10 PO; +MOME13HF2 INH; +MULT-1164 PO; +NAPR-688 PO; +NEU100 PO; +RAMI2.5C34 PO; +TURM1POW PO; +VITA1CAP PO; +[UNRECOGNIZED DRUG - OTHER]
[2016-08-01 18:25] VITALS: BP 115/62; PULSE 70; RESP 19; TEMP 97.8; O2SAT 94
--- NOTE | 2016-08-01 18:25 | NUR ---
PT BROUGHT IN BY STEPHANI HER, PLACED IN HALLWAY, TRIAGED, WILL REMAIN ON EMS GURNEY UNTIL OPEN BED AVAILABLE.
--- NOTE | 2016-08-01 18:25 | NUR ---
Alvarez galindo in ED - 08/01/16 at 1852 by FILI BROUGHT IN BY STEPHANI HER FROM [facility], PLACED IN [facility]. REPORT GIVEN TO RICK
--- NOTE | 2016-08-01 19:10 | NUR ---
Patient to ER bed 4 to gown for evaluation. Side rails up.
--- NOTE | 2016-08-01 19:11 | NUR ---
Alvarez galindo in ED - 08/01/16 at 2105 by SDEDNCK UMER Rodríguez at bedside examining patient.
[2016-08-01 19:20] LABS: HEMOGLOBIN 8.5 g/dL (12.0-16.0); MEAN CORPUSCULAR HGB CONC 34 % (32-36)
--- NOTE | 2016-08-01 19:20 | NUR ---
PT BIB BLS AMBULANCE FROM [facility] FOR LOW HGB/ HCT. PT DENIES ANY PAIN AND V/S WITHIN NORMAL LIMITS AND NOT IN CP DISTRESS.
[2016-08-01 19:25] LABS: BASOPHILS % (AUTO) 0.6 % (0.0-2.0); EOSINOPHILS # (AUTO) 0.5 K/uL (0.0-0.4); EOSINOPHILS % (AUTO) 6.6 % (0.0-4.0); HEMATOCRIT 24.9 % (36-48); LYMPHOCYTES # (AUTO) 1.4 K/uL (1.0-5.5); LYMPHOCYTES % (AUTO) 20.3 % (20.5-51.5); MEAN CORPUSCULAR HEMOGLOBIN 34 pg (27-31); MEAN CORPUSCULAR VOLUME 100 fL (79.0-98.0); MONOCYTES # (AUTO) 0.5 K/uL (0.0-1.0); MONOCYTES % (AUTO) 7.9 % (1.7-9.3); NEUTROPHILS # (AUTO) 4.4 K/uL (1.8-7.7); NEUTROPHILS % (AUTO) 64.6 % (40.0-70.0); PLATELET COUNT (AUTO) 445 K/uL (130-430); RED BLOOD CELL COUNT(AUTO) 2.49 MIL/uL (4.2-6.2); RED CELL DISTRIBUTION WIDTH 13.6 % (9.0-15.0); WHITE BLOOD COUNT (AUTO) 6.9 K/uL (4.8-10.8)
[2016-08-01 19:30] LABS: ANION GAP 5 (5-15); CALCIUM 9.2 mg/dL (8.4-11.0); CHLORIDE 103 mmol/L (98-107); GLUCOSE 106 mg/dL (70-99); SODIUM SERUM 137 mmol/L (136-145); UREA NITROGEN, BLOOD 11 mg/dL (8-21)
[2016-08-01 19:34] LABS: INR 0.9 (0.8-1.2); PROTHROMBIN TIME 10.2 SECS (9.5-12.5)
[2016-08-01 19:35] LABS: ALANINE AMINOTRANSFERASE 74 U/L (12-78); ALBUMIN 2.3 g/dL (3.4-4.8); ASPARTATE AMINOTRANSFERASE 83 U/L (10-37); TOTAL BILIRUBIN 0.9 mg/dL (0.0-1.0); TOTAL PROTEIN, SERUM 6.3 g/dL (6.4-8.3)
--- NOTE | 2016-08-01 20:00 | NUR ---
ER at bedside examining patient.
[2016-08-01] MEDS ORDERED: NACL 0.9% 1,000 ML IV ONE (20:30)
[2016-08-01 21:40] LABS: BILIRUBIN,URINE NEGATIVE (NEGATIVE); BLOOD, URINE NEGATIVE (NEGATIVE); CLARITY/URINE CLEAR (CLEAR); COLOR,URINE YELLOW (YELLOW); GLUCOSE,URINE NEGATIVE (NEGATIVE); KETONES,URINE NEGATIVE (NEGATIVE); LEUKOCYTE ESTERASE ,URINE TRACE (NEGATIVE); NITRITE, URINE NEGATIVE (NEGATIVE); PH,URINE 6.5 (5.0-8.0); PROTEIN URINE NEGATIVE (NEGATIVE); UROBILINOGEN,URINE 0.2 (0.2-1.0)
[2016-08-01 21:50] LABS: BACTERIA,URINE FEW /HPF (None Seen); RBC,URINE NONE SEEN /HPF (0-3)
[2016-08-01 21:51] LABS: MUCUS,URINE None Seen /LPF (None Seen)
--- NOTE | 2016-08-01 23:00 | NUR ---
# 16 FR Nam catheter with use of sterile technique. Immediate return of 700 cc YELLOW urine noted. Bedside drainage bag placed below level of bladder. Urine sample collected and sent to lab. Pt tolerated procedure WELL. Patient arrived with nam in place, changed due to standard of practice prior to admission. Patient unable to toilet self.
--- NOTE | 2016-08-01 23:35 | NUR ---
Patient will be admitted to care of DR SANZ. Admitted to TELEMETRY unit. Will go to room 108-A. Belongings list completed. Summary report printed. Report given to SAMUEL MESA.
--- NOTE | 2016-08-01 23:43 | NUR ---
ADMISSION: The patient, LUCRETIA CHOUDHARY, 81 y/o, F admitted by CHRISTOPHER SANZ MD, was given written information regarding hospital policies, unit procedures and contact persons.
[2016-08-02] VITALS (10 sets, daily range): BP systolic 96–140; BP diastolic 47–73; PULSE 75–85; RESP 16–19; TEMP 96.1–98.7; O2SAT 91–94
--- NOTE | 2016-08-02 | NUR ---
CALLED: DR SANZ PAGED FOR ORDERS
[2016-08-02] MEDS ORDERED: TEMA15CA51 PO (00:21)
[2016-08-02] MEDS ORDERED: HYDR-2489 PO (00:21)
[2016-08-02] MEDS ORDERED: SENN-104 PO (00:21)
[2016-08-02] MEDS ORDERED: SENNOSIDES/DOCUSATE SODIUM 1 TAB TABLET(SENOKOT-S) PO PRN (00:30)
[2016-08-02] MEDS ORDERED: ALBUTEROL MDI INHALATION 8 GM INH INH SCH (00:30)
--- NOTE | 2016-08-02 00:30 | NUR ---
ADMISSION PHYSICAL: RECEIVED PATIENT FROM SAMUEL MESA. PATIENT IN NO DISTRESS, DAUGHTER AND GRANDDAUGHTER AT THE BEDSIDE. PATIENT DENIES PAIN OR DISCOMFORT AT THIS TIME. PATIENT WAS ADMITTED FOR HYPOTENSION, SBP NOW IS IN THE 120s-140s, HR IN THE 80s. IVF RUNNING ORDERED; IV SITE PATENT WITHOUT SIGNS OF INFILTRATION. INCISION NOTED TO THE LEFT LATERAL SIDE OF THE LEG WITH [address] INCISION AREA NOTED TO BE SLIGHTLY RED. TWO OPEN SKIN TEARS NOTED BEHIND THE LEFT LEG AND TWO CLOSED SKIN TEARS NOTED TO THE LEFT LEG. MENDIOLA IN PLACE DRAINING TO GRAVITY, PATIENT VERBALIZED FEELING LIKE HER BLADDER WAS FULL, BLADDER SCAN DONE AND 0 ML NOTED. MENDIOLA READJUSTED, PATIENT VERBALIZED FEELING BETTER. PLAN OF CARE DISCUSSED WITH PATIENT. CALL LIGHT WITHIN REACH. WILL CONTINUE TO MONITOR.
[2016-08-02] MEDS ORDERED: TEMAZEPAM 15 MG CAPSULE PO SCH (00:45)
--- NOTE | 2016-08-02 00:45 | NUR ---
CALLED BACK : DR SANZ CALLED BACK , ASKED TO ENTER ORDER FOR TROPONIN Q8HRS X3, NORCO 5/325 2 TABS Q4HRS PRN FOR SEVERE PAIN , RESTORIL 15 MG PO QHS , BREATHING TREATMENT WITH ALBUTEROL AND ATROVENT .WILL ORDERS ENTER , ALSO INFORMED MD THAT ANTIBIOTICS ARE STARTING FROM TOMORROW , CAN WE START FORM MD CHARLEY ORDERED TO CHANGE THE ORDER OF ROCEPHIN FROM TONIGHT AND Q24HRS .
[2016-08-02] MEDS ORDERED: cefTRIAXone 1 GM in D5W 50 ML IV ONE (01:00)
[2016-08-02] MEDS: 0.45% NACL 1,000 ML IV SCH ×2 (01:08→11:09)
[2016-08-02] MEDS ORDERED: TEMAZEPAM 15 MG CAPSULE ONE (01:45)
[2016-08-02] MEDS ORDERED: cefTRIAXone 1 GM IVPB PREMIX 50 ML IV ONE (01:55)
--- NOTE | 2016-08-02 02:20 | NUR ---
ROUNDS: PATIENT RESTING IN NO DISTRESS. PATIENT DENIES PAIN OR DISCOMFORT AT THIS TIME. WILL CONTINUE TO MONITOR.
[2016-08-02] MEDS: ALBUTEROL SULFATE 0.083% 2.5 MG/3 ML VIAL.NEB INH SCH ×6 (03:05→23:00)
[2016-08-02] MEDS: IPRATROPIUM BROM 0.5 MG/2.5 ML VIAL.NEB (ATROVENT) INH SCH ×6 (03:05→23:00)
--- NOTE | 2016-08-02 04:34 | NUR ---
ROUNDS: PATIENT RESTING, IN NO DISTRESS. WILL CONTINUE TO MONITOR.
[2016-08-02] MEDS: LEVOTHYROXINE SODIUM 0.088 MG TABLET PO SCH (06:06)
--- NOTE | 2016-08-02 06:26 | NUR ---
CLOSING NOTE: PATIENT RESTING QUIETLY, IN NO DISTRESS. RELEASED THE WRIST RESTRAINTS FOR 15 MIN, CIRCULATION AND NEURO WNL. VITAL SIGNS REMAINED STABLE. WILL ENDORSE PATIENT TO DAY SHIFT NURSE. Addendum: 08/02/16 at 0629 by Anat Doran RN CHARTED ON THE WRONG PATIENT DISREGARD THIS NOTE
--- NOTE | 2016-08-02 06:31 | NUR ---
CLOSING NOTE: PATIENT RESTING IN NO DISTRESS. DENIES PAIN OR DISCOMFORT AT THIS TIME. VITAL SIGNS REMAINED STABLE THROUGHOUT SHIFT. WILL ENDORSE CARE TO THE DAY SHIFT NURSE.
[2016-08-02 06:43] LABS: BASOPHILS % (AUTO) 0.5 % (0.0-2.0); EOSINOPHILS # (AUTO) 0.4 K/uL (0.0-0.4); EOSINOPHILS % (AUTO) 5.4 % (0.0-4.0); HEMOGLOBIN 8.2 g/dL (12.0-16.0); LYMPHOCYTES % (AUTO) 13.7 % (20.5-51.5); MEAN CORPUSCULAR HEMOGLOBIN 34 pg (27-31); MEAN CORPUSCULAR HGB CONC 34 % (32-36); MEAN CORPUSCULAR VOLUME 101 fL (79.0-98.0); MONOCYTES # (AUTO) 0.6 K/uL (0.0-1.0); MONOCYTES % (AUTO) 7.5 % (1.7-9.3); NEUTROPHILS # (AUTO) 5.4 K/uL (1.8-7.7); NEUTROPHILS % (AUTO) 72.9 % (40.0-70.0); PLATELET COUNT (AUTO) 439 K/uL (130-430); RED BLOOD CELL COUNT(AUTO) 2.38 MIL/uL (4.2-6.2); RED CELL DISTRIBUTION WIDTH 13.5 % (9.0-15.0); WHITE BLOOD COUNT (AUTO) 7.4 K/uL (4.8-10.8)
[2016-08-02 07:19] LABS: ANION GAP 6 (5-15); CALCIUM 8.9 mg/dL (8.4-11.0); CHLORIDE 105 mmol/L (98-107); CREATININE 0.55 mg/dL (0.55-1.30); GLUCOSE 103 mg/dL (70-99); POTASSIUM 3.9 mmol/L (3.5-5.1); SODIUM SERUM 137 mmol/L (136-145); TOTAL BILIRUBIN 0.6 mg/dL (0.0-1.0); UREA NITROGEN, BLOOD 9 mg/dL (8-21)
[2016-08-02 07:20] LABS: ALANINE AMINOTRANSFERASE 73 U/L (12-78); ALBUMIN 2.2 g/dL (3.4-4.8); ASPARTATE AMINOTRANSFERASE 74 U/L (10-37); TOTAL PROTEIN, SERUM 6.1 g/dL (6.4-8.3)
--- NOTE | 2016-08-02 08:00 | NUR ---
AM SHIFT ASSESSMENT 81YO FEMALE ADMITTED FOR HYPOTENSION, SENT FROM [facility] FOR LOW H/H. A/OX4, PATIENT ABLE TO ASSIST WITH REPOSITIONING BUT NEEDS PHYSICAL THERAPY TO STAND OR WALK. LUNGS CTAB ON RA, HHN Q4HR FOR POSSIBLE PE PULSE OX @ 91%; PATIENT DENIES SOB. CARDIAC RRR, NO MURMURS OR RUBS ON AUSCULTATION, SR WITH 1ST DEGREE BLOCK ON TELE. BOWEL SOUNDS ACTIVE X 4, SOFT AND NON-TENDER, PATIENT STATES BM YESTERDAY MORNING. CONTINENT OF BOWEL AND BLADDER, MENDIOLA IN PLACE D/T FLUID REPLACEMENT AND DIFFICULTY WITH MOBILITY. PATIENT HAS LARGE WELL APPROXIMATED SURGICAL INCISION TO LEFT THIGH AND SKIN TEARS TO LEFT LOWER EXTREMITY. PATIENT DENIES C/O PAIN AT THIS TIME. PATIENT TO HAVE BLE VENOUS DOPPLER COMPLETED AND OCCULT BLOOD TO BE COLLECTED. BED IN LOW AND LOCKED POSITION WITH CALL LIGHT IN REACH WITH RETURN DEMONSTRATION OF USE, BED ALARM ON. WILL CONTINUE TO MONITOR.
[2016-08-02] MEDS: PANTOPRAZOLE SODIUM 40 MG TAB PO SCH (08:07)
[2016-08-02] MEDS: FERROUS SULFATE 325 MG TABLET.DR PO SCH (08:07)
[2016-08-02] MEDS: GABAPENTIN 100 MG CAPSULE PO SCH ×2 (08:08→21:21)
[2016-08-02] MEDS ORDERED: BOSWELLIA SERRA PO SCH (09:00)
[2016-08-02] MEDS ORDERED: DHA PO SCH (09:00)
[2016-08-02] MEDS ORDERED: D3 PO SCH (09:00)
[2016-08-02] MEDS ORDERED: cefTRIAXone 1 GM IVPB PREMIX 50 ML IV SCH (09:00)
[2016-08-02] MEDS ORDERED: EPA PO SCH (09:00)
[2016-08-02] MEDS ORDERED: NON-FORMULARY MEDICATION (Biotin 2,500 MCG) PO SCH (09:00)
[2016-08-02] MEDS ORDERED: GLUCOSAMINE PO SCH (09:00)
[2016-08-02] MEDS ORDERED: FISH OIL PO SCH (09:00)
[2016-08-02] MEDS ORDERED: NON-FORMULARY MEDICATION (Mometasone/Formoterol* (Dulera 100 Mcg/5 Mcg Inhaler*) 2 PUFF) INH SCH (09:00)
[2016-08-02] MEDS ORDERED: ALBUTEROL SULFATE 0.083% 2.5 MG/3 ML VIAL.NEB INH PRN (09:15)
[2016-08-02] MEDS ORDERED: IPRATROPIUM BROM 0.5 MG/2.5 ML VIAL.NEB (ATROVENT) INH PRN (09:15)
--- NOTE | 2016-08-02 09:33 | NUR ---
Nutrition Update Reza Scale 17 noted. Pt admitted for hypotension. Diet: cardiac BMI: 25.7 kg/m2 RD to follow per nutrition care standards.
--- NOTE | 2016-08-02 09:41 | NUR ---
Ortho consult Order received for a consult with Dr Will for a s/p femur fx. Spoke with Anat at his office. Will follow up as needed.
--- NOTE | 2016-08-02 10:00 | NUR ---
TO RADIOLOGY WITH NURSE PATIENT TAKEN TO RADIOLOGY FOR CTA CHEST, R/O PE, CONSENT SIGNED AND IN CHART. NEW IV TO RIGHT AC STARTED FOR SCAN, 20G WITH POSITIVE BLOOD RETURN, FLUSHED WITH 10ML NS. PATIENT TO 1 UNIT PRBC TRANSFUSION SINCE PATIENT SYMPTOMATIC AND PALE. TYPE AND SCREEN TO BE PROCESSED, PAPERWORK SENT TO LAB. PATIENT TOLERATED CT WELL AND RETURNED TO ROOM. ALL SAFETY MEASURES REMAIN IN PLACE. WILL CONTINUE TO MONITOR.
[2016-08-02] MEDS ORDERED: IOHEXOL 350 mgI/mL, 150 ML INFUS..BTL IV ONE (10:16)
[2016-08-02] MEDS: HYDROcodone/ACETAMIN 5-325 MG TAB (NORCO/ VICODIN) PO PRN (11:06)
[2016-08-02 11:26] LABS: THYROID STIMULATING HORMONE 3.1 uIu/mL (0.34-4.82)
[2016-08-02 11:49] LABS: IRON (SERUM) 28 mcg/dL (37-145); TOTAL IRON BIND. CAPACITY 192 ug/dL (250-450)
--- NOTE | 2016-08-02 12:00 | NUR ---
ROUNDS PATIENT RESTING IN BED, PRBC READY TO TRANSFUSE, PATIENT IS REQUESTING TO START BLOOD AFTER PHYSICAL THERAPY AND LUNCH. PATIENT PROVIDED WITH NORCO PRIOR TO PHYSICAL THERAPY AND IS WORKING WELL. FAMILY AT BEDSIDE. BLE VENOUS DOPPLER NEGATIVE, WAITING FOR CTA RESULTS. ALL SAFETY MEASURES REMAIN IN PLACE. WILL CONTINUE TO MONITOR.
--- NOTE | 2016-08-02 13:50 | NUR ---
BT INITIATION: Consent signed per Patient, Francisca Hernandez, agreeing to administration of blood. Blood has been type and crossmatched. Blood sent from blood bank. Information on unit of blood checked against patient wristband at bedside by two nurses. All information matches. Patient or responsible green party informed of potential complications associated with blood transfusion. Informed of possible transfusion reaction symptoms. Aware of need to notify nurse at once of itching, shortness of breath, flushing, feeling of impending doom, or other symptoms not previously present. Vital signs taken within 5 minutes prior to initiation of transfusion. RN will remain with patient for first 15 minutes of transfusion at which time vital signs will be re-assessed.
--- NOTE | 2016-08-02 14:08 | NUR ---
BLOOD TRANSFUSION CONT'D BLOOD INFUSING WELL. PATIENT DENIES C/O SOB, ITCHING OR PAIN. VSS. PATIENT EDUCATED TO CALL FOR ASSISTANCE IF SHE DEVELOPS ANY SUDDEN SYMPTOMS WITH CALL LIGHT IN REACH AND FAMILY AT BEDSIDE. WILL CONTINUE TO MONITOR.
--- NOTE | 2016-08-02 16:00 | NUR ---
ROUNDS BLOOD TRANSFUSION INFUSING WELL, DENIES ANY PAIN OR SOB. FAMILY AT PATIENT BEDSIDE. ALL SAFETY MEASURES REMAIN IN PLACE. WILL CONTINUE TO MONITOR.
[2016-08-02 18:27] LABS: BASOPHILS % (AUTO) 0.3 % (0.0-2.0); EOSINOPHILS # (AUTO) 0.3 K/uL (0.0-0.4); EOSINOPHILS % (AUTO) 3.8 % (0.0-4.0); HEMATOCRIT 26.7 % (36-48); HEMOGLOBIN 9.4 g/dL (12.0-16.0); LYMPHOCYTES # (AUTO) 1.2 K/uL (1.0-5.5); LYMPHOCYTES % (AUTO) 14.7 % (20.5-51.5); MEAN CORPUSCULAR HEMOGLOBIN 36 pg (27-31); MEAN CORPUSCULAR HGB CONC 35 % (32-36); MEAN CORPUSCULAR VOLUME 101 fL (79.0-98.0); MONOCYTES # (AUTO) 0.6 K/uL (0.0-1.0); MONOCYTES % (AUTO) 7.7 % (1.7-9.3); NEUTROPHILS # (AUTO) 6.1 K/uL (1.8-7.7); NEUTROPHILS % (AUTO) 73.5 % (40.0-70.0); PLATELET COUNT (AUTO) 453 K/uL (130-430); RED BLOOD CELL COUNT(AUTO) 2.65 MIL/uL (4.2-6.2); RED CELL DISTRIBUTION WIDTH 14.1 % (9.0-15.0); WHITE BLOOD COUNT (AUTO) 8.2 K/uL (4.8-10.8)
--- NOTE | 2016-08-02 18:30 | NUR ---
CLOSING NOTE PATIENT RESTING IN BED WITH FAMILY AT BEDSIDE. CBC RE-RUN FOLLOWING 1 UNIT PRBC WITH IMPROVEMENT IN HGB UP TO 9.4. PATIENT DENIES C/O PAIN. SCDS PLACED PER DOCTOR ORDER FOR DVT PROPHYLAXIS. ALL SAFETY MEASURES REMAIN IN PLACE. WILL ENDORSE CARE TO LOCATION WORKER NURSE.
--- NOTE | 2016-08-02 20:00 | NUR ---
ROUNDS PATIENT AWAKE IN BED, VITALS STABLE, DENIES ANY PAIN AND DISCOMFORT AT THIS TIME. ASSESSMENT DONE AND DOCUMENTED. SEE FLOWSHEET. NEEDS ATTENDED TO. SAFETY AND FALL PRECAUTION MEASURES IN PLACED. BED IN LOW AND LOCKED POSITION. CALL LIGHT PLACED WITHIN REACH. FAMILY MEMBERS AT THE BEDSIDE.
[2016-08-02] MEDS ORDERED: TEMAZEPAM 15 MG CAPSULE PO PRN (21:00)
[2016-08-02] MEDS ORDERED: ATORVASTATIN 10 MG TABLET PO SCH (21:00)
[2016-08-02] MEDS: MINERAL OIL 30 ML UDC PO SCH ×2 (21:00→21:22)
[2016-08-02] MEDS ORDERED: cefTRIAXone 1 GM in D5W 50 ML IV SCH (21:00)
[2016-08-02] MEDS ORDERED: SENNOSIDES/DOCUSATE SODIUM 1 TAB TABLET(SENOKOT-S) PO SCH (21:00)
--- NOTE | 2016-08-02 21:10 | NUR ---
MEDICATIONS DUE MEDICATIONS GIVEN SCHEDULED, TOLERATED WELL. WILL CONTINUE TO MONITOR.
[2016-08-02] MEDS ORDERED: POLYETHYLENE GLYCOL 3350, 17 GM/ POWD.PACK PO ONE (21:15)
[2016-08-02] MEDS: POLYETHYLENE GLYCOL 3350, 17 GM/ POWD.PACK PO SCH (22:37)
[2016-08-03] VITALS (9 sets, daily range): BP systolic 102–156; BP diastolic 59–96; PULSE 55–82; RESP 18–20; TEMP 96.2–98.8; O2SAT 93–95
--- NOTE | 2016-08-03 | NUR ---
PATIENT RESTING: Patient resting quietly. No acute distress noted. Vital signs within normal range.
--- NOTE | 2016-08-03 02:10 | NUR ---
ROUNDS PATIENT ASLEEP, VITALS STABLE, WILL CONTINUE TO MONITOR.
[2016-08-03] MEDS: ALBUTEROL SULFATE 0.083% 2.5 MG/3 ML VIAL.NEB INH SCH ×4 (03:00→15:00)
[2016-08-03] MEDS: IPRATROPIUM BROM 0.5 MG/2.5 ML VIAL.NEB (ATROVENT) INH SCH ×4 (03:00→15:00)
--- NOTE | 2016-08-03 04:10 | NUR ---
PATIENT RESTING: Patient resting quietly. No acute distress noted. Vital signs within normal range.
[2016-08-03] MEDS: LEVOTHYROXINE SODIUM 0.088 MG TABLET PO SCH (06:15)
[2016-08-03] MEDS: 0.45% NACL 1,000 ML IV SCH (06:17)
--- NOTE | 2016-08-03 06:44 | NUR ---
CLOSING NOTES PATIENT AWAKE, VITALS STABLE, DUE MEDICATIONS GIVEN SCHEDULED. ALL NEEDS ATTENDED TO. CALL LIGHT PLACED WITH PATIENT.
[2016-08-03] MEDS ORDERED: MAGNESIUM CITRATE 300 ML ORAL SOLUTION PO ONE (07:15)
[2016-08-03 08:45] LABS: BASOPHILS % (AUTO) 0.6 % (0.0-2.0); EOSINOPHILS # (AUTO) 0.3 K/uL (0.0-0.4); HEMOGLOBIN 9.3 g/dL (12.0-16.0); LYMPHOCYTES # (AUTO) 1.5 K/uL (1.0-5.5); LYMPHOCYTES % (AUTO) 19.3 % (20.5-51.5); MEAN CORPUSCULAR HEMOGLOBIN 34 pg (27-31); MEAN CORPUSCULAR HGB CONC 34 % (32-36); MEAN CORPUSCULAR VOLUME 100 fL (79.0-98.0); MONOCYTES # (AUTO) 0.5 K/uL (0.0-1.0); MONOCYTES % (AUTO) 6.7 % (1.7-9.3); NEUTROPHILS # (AUTO) 5.3 K/uL (1.8-7.7); NEUTROPHILS % (AUTO) 69.4 % (40.0-70.0); PLATELET COUNT (AUTO) 467 K/uL (130-430); RED CELL DISTRIBUTION WIDTH 14.6 % (9.0-15.0); WHITE BLOOD COUNT (AUTO) 7.6 K/uL (4.8-10.8)
[2016-08-03] MEDS ORDERED: CYANOCOBALAMIN 1000 mCg TABLET PO SCH (09:00)
[2016-08-03] MEDS ORDERED: FLUTICASONE/VILANTEROL 1 EACH BLST.W.DEV INH SCH (09:00)
[2016-08-03] MEDS ORDERED: MULTIVITS,CA,MINERALS/IRON/FA 1 TABLET PO SCH (09:00)
[2016-08-03] MEDS ORDERED: VITAMIN B COMPLEX 1 CAP/TAB PO SCH (09:00)
[2016-08-03] MEDS ORDERED: ENOXAPARIN SODIUM 30 MG/0.3 ML SYRINGE SUBCUT SCH (09:00)
[2016-08-03] MEDS: POLYETHYLENE GLYCOL 3350, 17 GM/ POWD.PACK PO SCH (09:25)
[2016-08-03] MEDS: MINERAL OIL 30 ML UDC PO SCH (09:25)
[2016-08-03] MEDS: HYDROcodone/ACETAMIN 5-325 MG TAB (NORCO/ VICODIN) PO PRN ×2 (09:27→16:09)
[2016-08-03] MEDS: GABAPENTIN 100 MG CAPSULE PO SCH (09:27)
[2016-08-03] MEDS: PANTOPRAZOLE SODIUM 40 MG TAB PO SCH (09:27)
[2016-08-03] MEDS: FERROUS SULFATE 325 MG TABLET.DR PO SCH (09:28)
--- NOTE | 2016-08-03 10:13 | NUR ---
HCP/PA: Called HAMLET Manriquez made her aware of discharge to SNF. Patient accepted [facility] pending bed assignment. RN to report . [facility] ambulance on will call .
--- NOTE | 2016-08-03 10:55 | NUR ---
CALLED DR PERSON RE MENDIOLA AND SHOWER ORDER. WAITING FOR CALLED BACK.
--- NOTE | 2016-08-03 12:21 | NUR ---
DISCHARGE PLANNING DC Planning order for LTAC evaluation. Faxed DC Planning order to [facility] [phone]. Notified [facility] requested for patient to be evaluated for short term placement. Will follow up. Addendum: 08/03/16 at 1420 by Yenni AVITIA DISREGARD NOTE ABOVE WRONG PATIENT.
--- NOTE | 2016-08-03 12:50 | NUR ---
Dr Henriquez rounds notified of episode of dizziness while she was sitting in chair and the blood pressure being 95/44 at that time, Reassessment vitals also given to MD. As well as orthostatic vitals. Dr Henriquez stated he will speak to the patient before she is discharged. We may transfer to [facility]. Pt and daughter made aware.
--- NOTE | 2016-08-03 15:35 | NUR ---
Wound Evaluation: Wound Consult received from Dr. Frye. Thank you, Dr. Frye, for the consult. Patient received in a [facility] bed, awake, alert, oriented. Skin is fair. Patient is unable to turn in bed independently secondary to recent left lower extremity surgery. Reza score is an 18. Past Medical History: Recent Femoral fracture, Hypertension, Asthma, and Peripheral Neuropathy. Recent labs: WBC 7.6, RBC 2.70, Hgb 9.3, Hct 27.0, PLT 467, Gluc 103, Alb 2.2. Intrinsic factors that delay wound healing: Asthma. Extrinsic factors that delay wound healing: Decreased mobility. MRSA Screen and Stool OB results negative. Urine Culture, and Blood Culture results x 2 in progress. Wound Assessment: 1) Left Posterior Mid Thigh, Superior to Popliteal Area: Appears to be an open bulla. Wound bed is 100% pink tissue. No odor, no drainage. Thelma-wound intact. Measures 4.0 cm x 0.4 cm. Recommend: Cleanse wound with normal saline. Pat dry around wound. Put moisture barrier cream onto thelma-wound. Put oil emulsion dressing onto wound bed. Cover with foam dressing. Perform wound care daily, and as needed for dressing soiling or dislodgment. 2) Left Posterior Proximal Thigh, Superior and Lateral Wound 1): Appears to be a closed bulla. Wound bed is unseen. 100% black discolor, possibly underneath skin. No odor, no drainage. Thelma-wound intact. Measures 8.1 cm x 1.0 cm. 3) Left Posterior Distal Thigh, Lateral and Inferior to Wound 1): Appears to be a closed bulla. Wound bed is unseen. 100% black discolor, possibly underneath skin. No odor, no drainage. Thelma-wound intact. Measures 8.1 cm x 1.0 cm. Recommend: Cleanse sites with normal saline. Pat dry. Cover with foam dressings. Perform wound care daily, and as needed for dressing soiling or dislodgment. 4) Left Proximal Calf: Appears to be an open bulla. Wound bed is 100% pink tissue. No odor, no drainage. Thelma-wound intact. Measures 2.7 cm x 1.9 cm. Recommend: Cleanse wound with normal saline. Pat dry around wound. Put moisture barrier cream onto thelma-wound. Put oil emulsion dressing onto wound bed. Cover with foam dressing. Perform wound care daily, and as needed for dressing soiling or dislodgment. Also recommend: Encourage and assist patient as needed with repositioning side to side only every two hours with pillow support, and off-load pressure areas with pillows for pressure re-distribution. Offload, elevate and float bilateral heels with pillows. Perform skin care and monitor skin integrity q shift. Use moisture barrier cream on buttocks, and other moisture susceptible areas qid and as needed for soiling.
--- NOTE | 2016-08-03 15:35 | NUR ---
Wound care and photos taken for discharge. Wound care nurse Christopher at bedside . Posterior lateral thigh and calf, cleansed with NS, Pat dry, oil emulsion dressing applied and covered with foam dressing. Left lateral hip with post op yue, no signs of infection noted. scant serous drainage noted on ol;d dressing. covered with foam dressing. Pt also has a linear area of dark brown, discoloration on the posterior lateral thigh,
--- NOTE | 2016-08-03 17:05 | NUR ---
PT TRANSFERRED Report given to Manisha at [facility]. Transfer packet with Transfer Orders and Medication Reconciliation form given to EMT with report. Exitcare provided. [facility] ID band removed, replaced with ID band with pt's name and . IV catheter removed, intact and dressing applied, no active bleeding. All belongings sent with patient. Patient left floor via gurney escorted by EMT in no distress, Daughter Mariely accompanying pt and took home all the belonings.
--- NOTE | 2016-08-03 18:05 | NUR ---
PHYSICAL THERAPY CO-SIGN The Physical Therapy Progress Notes documented by Detective Captain have been reviewed. I CONCUR W/ALTITUDE CHAMBER TECHNICIAN NOTE; CONT PER TX PLAN Reviewed/Co-Signed by: Millie Walker PT Documentation Done by: AUNDREA GIL PTA Addendum: 08/04/16 at 0807 by Millie Walker PT Amended: Links added.
== END 2016-08-03 17:00 | DRG 812 ==
LOC: SED 18:23 → STU 23:11
PROC: 30233N1 Transfusion of Nonautologous Red Blood Cells into Peripheral Vein, Percutaneous Approach (ICD-10-PCS; principal; 2016-08-02)
DX: D62 Acute posthemorrhagic anemia (principal); E44.0 Moderate protein-calorie malnutrition; I95.9 Hypotension, unspecified; G62.9 Polyneuropathy, unspecified; I10 Essential (primary) hypertension; J45.909 Unspecified asthma, uncomplicated; Z96.642 Presence of left artificial hip joint; Z87.81 Personal history of (healed) traumatic fracture; Z79.899 Other long term (current) drug therapy; Z68.25 Body mass index [BMI] 25.0-25.9, adult
CPT/HCPCS: 36415; 71275; 80053; 81000-TC; 82272; 82533; 82607; 83540-TC; 83550-TC; 83605; 83615-TC; 84302-TC; 84443-TC; 84484; 85018-TC; 85025; 85379; 85610-TC; 85730-TC; 86886; 86900; 86901; 86920; 87040-TC; 87081; 87086; 93005; 93306; 93970; 94010; 94640; 94760; 96360; 97110-GP; 97116-GP; 97530-GP; 99285; J0696; J1650; J7030; J7060; P9021; Q9967

== ENCOUNTER 2016-08-24 16:38 | Emergency (ER) | payer BC ==
[~2016-08-24] VITALS: Ht 170.2 cm; Wt 68.0 kg
[~2016-08-24 16:38] MED LIST changes: +HYDR-2489 PO; +SENN-104 PO; +TEMA15CA51 PO
[2016-08-24 17:13] VITALS: BP 117/49; PULSE 93; RESP 16; TEMP 97.6; O2SAT 97
--- NOTE | 2016-08-24 17:23 | NUR ---
Patient triaged and placed in waiting room. VSS and patient appears in no acute distress at this time. Accompanied by DAUGHTER, awaiting available bed, and MD notified of need for MSE.
--- NOTE | 2016-08-24 19:28 | NUR ---
Patient to ER bed 5 to gown for evaluation. Side rails up. Report given to MOSHE Kennedy.
--- NOTE | 2016-08-24 19:35 | NUR ---
Pt brought to ED by family member with c/o lower-mid abdominal pain 5/ , with diarrhea x6 times today. Pt was sent by PCP for evaluation. A&Ox4, denies SOB or chestpain, denies N/V/D, Skin intact. Will continue to monitor
--- NOTE | 2016-08-24 20:15 | NUR ---
at bedside examing pt
[2016-08-24 21:00] LABS: BASOPHILS # (AUTO) 0.1 K/uL (0.0-0.2); BASOPHILS % (AUTO) 0.8 % (0.0-2.0); EOSINOPHILS # (AUTO) 0.3 K/uL (0.0-0.4); EOSINOPHILS % (AUTO) 3.8 % (0.0-4.0); HEMATOCRIT 34.8 % (36-48); HEMOGLOBIN 11.9 g/dL (12.0-16.0); LYMPHOCYTES # (AUTO) 0.9 K/uL (1.0-5.5); LYMPHOCYTES % (AUTO) 11.5 % (20.5-51.5); MEAN CORPUSCULAR HEMOGLOBIN 33 pg (27-31); MEAN CORPUSCULAR HGB CONC 34 % (32-36); MEAN CORPUSCULAR VOLUME 95 fL (79.0-98.0); MONOCYTES # (AUTO) 0.9 K/uL (0.0-1.0); MONOCYTES % (AUTO) 10.5 % (1.7-9.3); NEUTROPHILS # (AUTO) 5.9 K/uL (1.8-7.7); NEUTROPHILS % (AUTO) 73.4 % (40.0-70.0); PLATELET COUNT (AUTO) 279 K/uL (130-430); RED BLOOD CELL COUNT(AUTO) 3.65 MIL/uL (4.2-6.2); WHITE BLOOD COUNT (AUTO) 8.1 K/uL (4.8-10.8)
[2016-08-24 21:02] LABS: ANION GAP 11 (5-15); CALCIUM 9.1 mg/dL (8.4-11.0); CHLORIDE 103 mmol/L (98-107); CREATININE 0.62 mg/dL (0.55-1.30); GLUCOSE 103 mg/dL (70-99); POTASSIUM 3.6 mmol/L (3.5-5.1); SODIUM SERUM 138 mmol/L (136-145); UREA NITROGEN, BLOOD 13 mg/dL (8-21)
[2016-08-24 21:07] LABS: ALANINE AMINOTRANSFERASE 202 U/L (12-78); ALBUMIN 3.1 g/dL (3.4-4.8); ASPARTATE AMINOTRANSFERASE 74 U/L (10-37)
[2016-08-24 21:30] VITALS: BP 110/56; PULSE 88; RESP 18; TEMP 97.6; O2SAT 97
--- NOTE | 2016-08-24 21:30 | NUR ---
Patient given written and verbal discharge instructions and verbalizes understanding. ER MD Goldberg discussed with patient the results and treatment provided. Patient in stable condition. ID arm band removed. No Rx given. Patient educated on pain management and to follow up with PMD. Pain Scale 0/10 Opportunity for questions provided and answered.
== END 2016-08-24 21:30 | disposition home or self-care (01) ==
LOC: SED 16:38
DX: K52.9 Noninfective gastroenteritis and colitis, unspecified (principal); I10 Essential (primary) hypertension; E03.9 Hypothyroidism, unspecified
CPT/HCPCS: 36415; 80053; 85025; 99285

== ENCOUNTER 2022-05-23 14:06 | Inpatient (IN) | payer BC ==
[~2022-05-23] VITALS: Ht 167.6 cm; Wt 58.1 kg
[~2022-05-23 14:06] MED LIST changes: -ASPI-859 PO; -FERR159T2 PO; -HYDR-2489 PO; +HYDR-4274 PO; -LEVO25TA58 PO; -LISINOPRIL PO; -NAPR-688 PO; +PRED20TA PO; -RAMI2.5C34 PO; -SENN-104 PO; +SENN-295 PO; +TEMA15CA5 PO; -TEMA15CA51 PO; -TURM1POW PO; -[UNRECOGNIZED DRUG - OTHER]
[2022-05-23 15:02] VITALS: BP_SYST 138
[2022-05-23] MEDS ORDERED: MORPHINE 4 MG INJ. 4 MG/ML VIAL IM ONE (22:00)
[2022-05-23] MEDS ORDERED: NACL 0.9% 1,000 ML IV ONE (22:15)
[2022-05-23] MEDS ORDERED: MORPHINE 4 MG INJ. 4 MG/ML VIAL IVP ONE (22:30)
[2022-05-23 22:51] LABS: HEMOGLOBIN 11.3 g/dL (12.0-16.0); RED BLOOD CELL COUNT(AUTO) 3.47 MIL/uL (4.2-6.2); WHITE BLOOD COUNT (AUTO) 7.2 K/uL (4.8-10.8)
[2022-05-23 23:06] LABS: BASOPHILS % (AUTO) 0.1 % (0.0-2.0); EOSINOPHILS % (AUTO) 0.4 % (0.0-4.0); HEMATOCRIT 33.2 % (36-48); LYMPHOCYTES # (AUTO) 0.6 K/uL (1.0-5.5); LYMPHOCYTES % (AUTO) 8.5 % (20.5-51.5); MEAN CORPUSCULAR HEMOGLOBIN 32 pg (27-31); MEAN CORPUSCULAR HGB CONC 34 % (32-36); MEAN CORPUSCULAR VOLUME 96 fL (79.0-98.0); MONOCYTES # (AUTO) 0.5 K/uL (0.0-1.0); MONOCYTES % (AUTO) 6.9 % (1.7-9.3); NEUTROPHILS # (AUTO) 6.1 K/uL (1.8-7.7); NEUTROPHILS % (AUTO) 84.1 % (40.0-70.0); PLATELET COUNT (AUTO) 176 K/uL (130-430); RED CELL DISTRIBUTION WIDTH 13.3 % (9.0-15.0)
[2022-05-23 23:34] LABS: ANION GAP 8 (5-15); CALCIUM 9.6 mg/dL (8.4-11.0); CHLORIDE 105 mmol/L (98-107); CREATININE 0.71 mg/dL (0.55-1.30); GLUCOSE 126 mg/dL (70-99); UREA NITROGEN, BLOOD 16 mg/dL (8-21)
[2022-05-23 23:43] LABS: ALANINE AMINOTRANSFERASE 18 U/L (12-78); ALBUMIN 3.4 g/dL (3.4-4.8); ASPARTATE AMINOTRANSFERASE 27 U/L (10-37); TOTAL BILIRUBIN 0.8 mg/dL (0.0-1.0)
[2022-05-24] MEDS ORDERED: MORPHINE 4 MG INJ. 4 MG/ML VIAL IVP ONE
[2022-05-24] MEDS ORDERED: MIRT-114 PO (03:14)
[2022-05-24] MEDS ORDERED: TOLT4CAP PO (03:14)
[2022-05-24] MEDS ORDERED: MORPHINE 4 MG INJ. 4 MG/ML VIAL ONE (03:58)
[2022-05-24] MEDS ORDERED: ONDANSETRON HCL 4 MG/2 ML VIAL IVP ONE (04:00)
[2022-05-24 09:42] VITALS: BP_SYST 117
[2022-05-24 10:30] VITALS: BP_SYST 117
[2022-05-24] MEDS: MORPHINE 2 MG/ML INJ. SYRINGE IVP PRN ×3 (11:03→18:56)
[2022-05-24 12:15] VITALS: BP_SYST 129
[2022-05-24] MEDS ORDERED: METOPROLOL SUCCINATE 25 MG TAB.SR.24H (TOPROL XL) PO ONE (15:00)
[2022-05-24 15:30] VITALS: BP_SYST 137
[2022-05-24 19:50] VITALS: BP_SYST 117
[2022-05-24 23:14] VITALS: BP_SYST 108
[2022-05-25 00:02] VITALS: BP_SYST 107
[2022-05-25 08:00] VITALS: BP_SYST 117
[2022-05-25] MEDS ORDERED: REGADENOSON 0.4 MG/5 ML SYRINGE IVP ONE (10:00)
[2022-05-25] MEDS: METOPROLOL SUCCINATE 25 MG TAB.SR.24H (TOPROL XL) PO SCH (12:56)
[2022-05-25 14:30] LABS: BILIRUBIN,URINE NEGATIVE (NEGATIVE); BLOOD, URINE 2+ (NEGATIVE); CLARITY/URINE CLEAR (CLEAR); COLOR,URINE YELLOW (YELLOW); GLUCOSE,URINE NEGATIVE (NEGATIVE); KETONES,URINE 3+ (NEGATIVE); LEUKOCYTE ESTERASE ,URINE NEGATIVE (NEGATIVE); NITRITE, URINE NEGATIVE (NEGATIVE); PROTEIN URINE TRACE (NEGATIVE)
[2022-05-25 14:33] LABS: PROTHROMBIN TIME 10.3 SECS (9.5-12.5)
[2022-05-25 14:41] LABS: BACTERIA,URINE None Seen /HPF (None Seen); MUCUS,URINE None Seen /LPF (None Seen); WBC,URINE 0-3 /HPF (0-3)
[2022-05-25] MEDS ORDERED: ONDANSETRON HCL 4 MG/2 ML VIAL IVP ONE (16:40)
[2022-05-25] MEDS ORDERED: DEXAMETHASONE SOD PHOSPHATE 4 MG/ML VIAL IVP ONE ×2 (16:40)
[2022-05-25] MEDS ORDERED: KETOROLAC TROMETHAMINE 30 MG VIAL IVP ONE (16:40)
[2022-05-25] MEDS ORDERED: SUGAMMADEX SODIUM 200 MG/2 ML VIAL IV ONE (16:40)
[2022-05-25] MEDS ORDERED: PROPOFOL 200MG/ 20ML VIAL (DIPRIVAN) IV ONE (16:40)
[2022-05-25] MEDS ORDERED: LR 1,000 ML IV.SOLN IV ONE (16:40)
[2022-05-25] MEDS ORDERED: SEVOFLURANE 15 MIN GAS INH ONE (16:40)
[2022-05-25] MEDS ORDERED: HYDROmorphone 2 MG/ML VIAL IVP ONE (16:40)
[2022-05-25] MEDS ORDERED: ROCURONIUM BROMIDE 10 MG/ML (ZEMURON) IV ONE (16:40)
[2022-05-25] MEDS ORDERED: BUPIVACAINE /EPINEPHRINE/PF 0.25% 30 ML VIAL INJ ONE (16:40)
[2022-05-25] MEDS ORDERED: ePHEDrine sulfate 50 MG/ML VIAL IVP ONE (16:40)
[2022-05-25] MEDS ORDERED: TRANEXAMIC ACID 1,000 MG/10 ML VIAL IV ONE (16:40)
[2022-05-25 18:22] VITALS: BP_SYST 135
[2022-05-25] MEDS ORDERED: ACETAMINOPHEN I.V. 1000 MG 100 ML IV ONE ×2 (18:48→19:00)
[2022-05-25] MEDS ORDERED: HYDROmorphone 1 MG/ML INJ. CARTRIDGE IVP PRN ×2 (19:00)
[2022-05-25] MEDS ORDERED: ONDANSETRON HCL 4 MG/2 ML VIAL IVP PRN (19:00)
[2022-05-25] MEDS ORDERED: NALOXONE HCL 0.4 MG/ML AMP (NARCAN) IVP PRN (19:00)
[2022-05-25 20:00] VITALS: BP_SYST 135
[2022-05-25] MEDS ORDERED: CEFAZOLIN 2 GM IVPB PREMIX 50 ML IV ONE (21:28)
[2022-05-25 22:00] VITALS: BP_SYST 121
[2022-05-25] MEDS: ceFAZolin SODIUM 2 GM in D5W 100 ML IV SCH (22:18)
[2022-05-26 00:19] VITALS: BP_SYST 136
[2022-05-26] MEDS: ceFAZolin SODIUM 2 GM in D5W 100 ML IV SCH (05:21)
[2022-05-26 06:47] LABS: BASOPHILS % (AUTO) 0.1 % (0.0-2.0); HEMATOCRIT 29.3 % (36-48); HEMOGLOBIN 9.8 g/dL (12.0-16.0); LYMPHOCYTES # (AUTO) 0.5 K/uL (1.0-5.5); LYMPHOCYTES % (AUTO) 6.2 % (20.5-51.5); MEAN CORPUSCULAR HEMOGLOBIN 32 pg (27-31); MEAN CORPUSCULAR HGB CONC 34 % (32-36); MEAN CORPUSCULAR VOLUME 96 fL (79.0-98.0); MONOCYTES # (AUTO) 0.5 K/uL (0.0-1.0); MONOCYTES % (AUTO) 7.2 % (1.7-9.3); NEUTROPHILS # (AUTO) 6.3 K/uL (1.8-7.7); NEUTROPHILS % (AUTO) 86.5 % (40.0-70.0); PLATELET COUNT (AUTO) 142 K/uL (130-430); RED BLOOD CELL COUNT(AUTO) 3.05 MIL/uL (4.2-6.2); WHITE BLOOD COUNT (AUTO) 7.3 K/uL (4.8-10.8)
[2022-05-26 06:56] LABS: ALANINE AMINOTRANSFERASE 19 U/L (12-78); ALBUMIN 2.5 g/dL (3.4-4.8); ANION GAP 7 (5-15); ASPARTATE AMINOTRANSFERASE 33 U/L (10-37); CALCIUM 8.7 mg/dL (8.4-11.0); CHLORIDE 100 mmol/L (98-107); CREATININE 0.96 mg/dL (0.55-1.30); GLUCOSE 172 mg/dL (70-99); TOTAL BILIRUBIN 0.7 mg/dL (0.0-1.0); UREA NITROGEN, BLOOD 16 mg/dL (8-21)
[2022-05-26 08:00] VITALS: BP_SYST 92
[2022-05-26] MEDS: METOPROLOL SUCCINATE 25 MG TAB.SR.24H (TOPROL XL) PO SCH (09:00)
[2022-05-26 12:07] VITALS: BP_SYST 90
[2022-05-26 16:34] VITALS: BP_SYST 98
[2022-05-26 20:00] VITALS: BP_SYST 110
[2022-05-26] MEDS: OXYBUTYNIN CHLORIDE 5 MG TABLET PO SCH (20:56)
[2022-05-26] MEDS: ATORVASTATIN 10 MG TABLET PO SCH (20:56)
[2022-05-26] MEDS: GABAPENTIN 100 MG CAPSULE PO SCH (20:57)
[2022-05-27] VITALS (7 sets, daily range): BP systolic 85–121
[2022-05-27] MEDS: MULTIVITS,CA,MINERALS/IRON/FA 1 TABLET PO SCH (08:35)
[2022-05-27] MEDS: MIRTAZAPINE 15 MG TABLET PO SCH (08:35)
[2022-05-27] MEDS: OXYBUTYNIN CHLORIDE 5 MG TABLET PO SCH ×3 (08:35→19:53)
[2022-05-27] MEDS: GABAPENTIN 100 MG CAPSULE PO SCH ×2 (08:35→19:52)
[2022-05-27] MEDS: FERROUS SULFATE 325 MG TABLET.DR PO SCH (08:35)
[2022-05-27] MEDS: SENNOSIDES/DOCUSATE SODIUM 1 TAB TABLET(SENOKOT-S) PO SCH (08:35)
[2022-05-27] MEDS: METOPROLOL SUCCINATE 25 MG TAB.SR.24H (TOPROL XL) PO SCH (08:36)
[2022-05-27] MEDS ORDERED: TOLTERODINE TARTRATE ER 2 MG CAP.ER.24H PO SCH (09:00)
[2022-05-27] MEDS: MORPHINE 2 MG/ML INJ. SYRINGE IVP PRN ×2 (09:25→19:24)
[2022-05-27] MEDS ORDERED: DICLOFENAC SODIUM 25 MG TABLET.DR PO ONE (12:00)
[2022-05-27] MEDS: DICLOFENAC SODIUM 25 MG TABLET.DR PO SCH (19:52)
[2022-05-27] MEDS: ATORVASTATIN 10 MG TABLET PO SCH (20:01)
[2022-05-28 07:00] VITALS: BP_SYST 127
[2022-05-28 08:00] VITALS: BP_SYST 127
[2022-05-28] MEDS: OXYBUTYNIN CHLORIDE 5 MG TABLET PO SCH ×3 (08:02→21:44)
[2022-05-28] MEDS: MIRTAZAPINE 15 MG TABLET PO SCH (08:02)
[2022-05-28] MEDS: SENNOSIDES/DOCUSATE SODIUM 1 TAB TABLET(SENOKOT-S) PO SCH (08:02)
[2022-05-28] MEDS: DICLOFENAC SODIUM 25 MG TABLET.DR PO SCH ×2 (08:03→21:45)
[2022-05-28] MEDS: MULTIVITS,CA,MINERALS/IRON/FA 1 TABLET PO SCH (08:03)
[2022-05-28] MEDS: METOPROLOL SUCCINATE 25 MG TAB.SR.24H (TOPROL XL) PO SCH (08:04)
[2022-05-28] MEDS: GABAPENTIN 100 MG CAPSULE PO SCH ×2 (08:04→21:45)
[2022-05-28] MEDS: FERROUS SULFATE 325 MG TABLET.DR PO SCH (08:04)
[2022-05-28 08:56] VITALS: BP_SYST 93
[2022-05-28] MEDS: MORPHINE 2 MG/ML INJ. SYRINGE IVP PRN (10:03)
[2022-05-28 12:00] VITALS: BP_SYST 100
[2022-05-28] MEDS ORDERED: NALOXONE HCL 0.4 MG/ML AMP (NARCAN) IVP PRN (12:45)
[2022-05-28 16:00] VITALS: BP_SYST 115
[2022-05-28 20:30] VITALS: BP_SYST 129
[2022-05-28] MEDS: ATORVASTATIN 10 MG TABLET PO SCH (21:45)
[2022-05-29 01:00] VITALS: BP_SYST 132
[2022-05-29 08:00] VITALS: BP_SYST 115
[2022-05-29] MEDS: METOPROLOL SUCCINATE 25 MG TAB.SR.24H (TOPROL XL) PO SCH (09:00)
[2022-05-29] MEDS: FERROUS SULFATE 325 MG TABLET.DR PO SCH (09:42)
[2022-05-29] MEDS: MULTIVITS,CA,MINERALS/IRON/FA 1 TABLET PO SCH (09:42)
[2022-05-29] MEDS: DICLOFENAC SODIUM 25 MG TABLET.DR PO SCH ×2 (09:42→21:08)
[2022-05-29] MEDS: MIRTAZAPINE 15 MG TABLET PO SCH (09:42)
[2022-05-29] MEDS: OXYBUTYNIN CHLORIDE 5 MG TABLET PO SCH ×3 (09:45→21:08)
[2022-05-29] MEDS: SENNOSIDES/DOCUSATE SODIUM 1 TAB TABLET(SENOKOT-S) PO SCH (09:45)
[2022-05-29] MEDS: GABAPENTIN 100 MG CAPSULE PO SCH ×2 (09:45→21:08)
[2022-05-29 11:45] VITALS: BP_SYST 135
[2022-05-29 16:09] VITALS: BP_SYST 130
[2022-05-29 20:30] VITALS: BP_SYST 134
[2022-05-29] MEDS: ATORVASTATIN 10 MG TABLET PO SCH (21:07)
[2022-05-30] VITALS: BP_SYST 138
[2022-05-30 08:00] VITALS: BP_SYST 119
[2022-05-30] MEDS: FERROUS SULFATE 325 MG TABLET.DR PO SCH (09:15)
[2022-05-30] MEDS: OXYBUTYNIN CHLORIDE 5 MG TABLET PO SCH ×2 (09:15→14:45)
[2022-05-30] MEDS: GABAPENTIN 100 MG CAPSULE PO SCH (09:15)
[2022-05-30] MEDS: SENNOSIDES/DOCUSATE SODIUM 1 TAB TABLET(SENOKOT-S) PO SCH (09:15)
[2022-05-30] MEDS: HYDROcodone/ACETAMIN 10-325 MG TAB PO PRN ×2 (09:16→18:08)
[2022-05-30] MEDS: MULTIVITS,CA,MINERALS/IRON/FA 1 TABLET PO SCH (09:17)
[2022-05-30] MEDS: METOPROLOL SUCCINATE 25 MG TAB.SR.24H (TOPROL XL) PO SCH (09:17)
[2022-05-30] MEDS: DICLOFENAC SODIUM 25 MG TABLET.DR PO SCH (09:17)
[2022-05-30] MEDS: MIRTAZAPINE 15 MG TABLET PO SCH (11:24)
[2022-05-30 13:58] VITALS: BP_SYST 99
[2022-05-30 15:18] VITALS: BP_SYST 99
== END 2022-05-30 18:38 | DRG 482 ==
LOC: SED 14:06 → SMU 05-24 02:45
PROVIDERS: ADMIT Internal Medicine; ATTEND Internal Medicine
PROC: 0QS604Z Reposition Right Upper Femur with Internal Fixation Device, Open Approach (ICD-10-PCS; principal; 2022-05-25 16:40)
DX: S72.91XA Unspecified fracture of right femur, initial encounter for closed fracture (principal); E03.9 Hypothyroidism, unspecified; J44.9 Chronic obstructive pulmonary disease, unspecified; W18.39XA Other fall on same level, initial encounter; Z20.822 Contact with and (suspected) exposure to COVID-19; Y93.89 Activity, other specified; Y92.89 Other specified places as the place of occurrence of the external cause; Y99.8 Other external cause status
CPT/HCPCS: 36415; 71045; 72170-TC; 73552; 76001; 80053; 81000; 83735; 83880; 84484; 85025; 85610-TC; 86886; 86900; 86901; 87081; 93005; 93017; 93306; 96361; 96374; 96375; 96376; 97110-GP; 97116-GP; 97163-GP; 97530-GP; 99285; A9500; J0131; J0690; J1100; J1170; J1885; J2270; J2405; J2704; J2785; J3490; J7030; J7060; J7120